=== PATIENT | female | born 1950 | race Caucasian/White ===

== ENCOUNTER → 2018-05-23 09:12 | Outpatient (CLI) | payer MEDICARE, OTHER, SELFPAY ==
[2018-05-23 10:53] LABS: Microalbumin,Random Urine 6.5 mg/L (NO RANGE EST.); Microalbumin:Creatinine Ratio 3.1 mg/g CRE (<30 mg/g CRE)
[2018-05-23 10:54] LABS: ALB/GLOB Ratio 0.9 RATIO (0.9-2.4); AST(SGOT) 20 U/L (15-37); Alanine Aminotransfer ALT/SGPT 23 U/L (13-56); Albumin, Serum 3.4 g/dL (3.2-5.0); Alkaline Phosphatase 122 U/L (45-117); Anion Gap 9 (5-15); BUN 12 mg/dL (7-18); BUN/Creat Ratio 14.7 RATIO (10-20); Calcium,Total 8.4 mg/dL (8.5-10.1); Chloride 104 mmol/L (98-107); Cholesterol 207 mg/dL (200); Creatinine, Serum 0.82 mg/dL (0.55-1.02); EST Glomerular Filtration Rate 74 mL/min (>60); Est Glom Filt Rate - Afr Amer 90 mL/min (>60); Globulin 3.6 g/dL (2.2-4.2); Glucose 86 mg/dL (74-106); High Density Lipoprotein 63 mg/dL; Potassium 4.1 mmol/L (3.5-5.1); Sodium Level 140 mmol/L (136-145); Triglycerides 87 mg/dL; Uric Acid 5.1 mg/dL (2.6-6.0); Very Low Density Lipoprotein 17 mg/dL (5-40)
== END ==
PROVIDERS: Family Provider Family Medicine; PCP Family Medicine; Referring Provider Family Medicine; Visit Provider Family Medicine
DX: I10 Essential (primary) hypertension (principal); E78.00 Pure hypercholesterolemia, unspecified
CPT/HCPCS: 36415; 80053; 80061; 82043; 82570; 84443; 84550

== ENCOUNTER → 2018-11-26 | Outpatient (CLI) | payer MEDICARE, OTHER, SELFPAY ==
[2018-11-26 13:10] LABS: Vitamin D,25 Hydroxy 22.8 ng/mL (29.95-100.01)
[2018-11-26 13:14] LABS: ALB/GLOB Ratio 0.9 RATIO (0.9-2.4); AST(SGOT) 19 U/L (15-37); Alanine Aminotransfer ALT/SGPT 27 U/L (13-56); Albumin, Serum 3.4 g/dL (3.2-5.0); Alkaline Phosphatase 125 U/L (45-117); Anion Gap 8 (5-15); BUN 11 mg/dL (7-18); BUN/Creat Ratio 15.8 RATIO (10-20); Calcium,Total 8.7 mg/dL (8.5-10.1); Chloride 105 mmol/L (98-107); Cholesterol 219 mg/dL (200); EST Glomerular Filtration Rate 89 mL/min (>60); Est Glom Filt Rate - Afr Amer 108 mL/min (>60); Globulin 3.6 g/dL (2.2-4.2); Glucose 79 mg/dL (74-106); High Density Lipoprotein 64 mg/dL; Potassium 4.4 mmol/L (3.5-5.1); Sodium Level 142 mmol/L (136-145); Triglycerides 103 mg/dL; Very Low Density Lipoprotein 21 mg/dL (5-40)
== END | disposition home or self-care (01) ==
LOC: MFPLAB 09:48
PROVIDERS: Family Provider Family Medicine; PCP Family Medicine; Referring Provider Family Medicine; Visit Provider Family Medicine
DX: I10 Essential (primary) hypertension (principal); R74.8 Abnormal levels of other serum enzymes; E78.00 Pure hypercholesterolemia, unspecified
CPT/HCPCS: 36415; 80053; 80061; 82306; 83970; 84443

== ENCOUNTER → 2019-05-21 09:03 | Outpatient (CLI) | payer MEDICARE, OTHER, SELFPAY ==
[2019-04-13 13:04] VITALS: BMI 28.4
[2019-05-21 10:37] LABS: ALB/GLOB Ratio 0.9 RATIO (0.9-2.4); AST(SGOT) 20 U/L (15-37); Alanine Aminotransfer ALT/SGPT 27 U/L (13-56); Albumin, Serum 3.4 g/dL (3.2-5.0); Alkaline Phosphatase 115 U/L (45-117); Anion Gap 5 (5-15); BUN 11 mg/dL (7-18); BUN/Creat Ratio 13.5 RATIO (10-20); Calcium,Total 8.7 mg/dL (8.5-10.1); Chloride 107 mmol/L (98-107); Cholesterol 227 mg/dL (200); Creatinine, Serum 0.81 mg/dL (0.55-1.02); EST Glomerular Filtration Rate 75 mL/min (>60); Est Glom Filt Rate - Afr Amer 90 mL/min (>60); Globulin 3.6 g/dL (2.2-4.2); Glucose 89 mg/dL (74-106); High Density Lipoprotein 65 mg/dL; Potassium 4.1 mmol/L (3.5-5.1); Sodium Level 141 mmol/L (136-145); Triglycerides 102 mg/dL; Very Low Density Lipoprotein 20 mg/dL (5-40)
== END ==
PROVIDERS: Family Provider Family Medicine; PCP Family Medicine; Referring Provider Family Medicine; Visit Provider Family Medicine
DX: E78.00 Pure hypercholesterolemia, unspecified (principal); I10 Essential (primary) hypertension
CPT/HCPCS: 36415; 80053; 80061

== ENCOUNTER → 2019-08-24 | Outpatient (CLI) | payer MEDICARE, OTHER, SELFPAY ==
[2019-04-13 13:04] VITALS: BMI 28.4
--- NOTE | 2019-08-24 10:47 | RAD_ITS ---
STUDY: X-RAY - RIGHT FOOT CLINICAL: Female, 69 years old. right foot pain, no injury, pain on top of foot and lateral TECHNIQUE: 3 view(s) of the foot. COMPARISON: 02/23/2017 FINDINGS: Calcaneus spurs. Hindfoot osteoarthritis. Normal metatarsi. There is degenerative arthrosis of the metatarsophalangeal joint of the hallux . Normal tibial and fibular sesamoid bones. Normal interphalangeal joint of the great toe. Normal phalanges of the great toe. Normal second through fifth metatarsophalangeal joints. Normal interphalangeal joints and phalanges of the lesser toes. The soft tissue structures are unremarkable. RAD/Foot min 3 Views IMPRESSION: Degenerative changes as described. Electronically Signed: Carlos Stanley MD at 14:21 EDT Tel , Service support ,
--- NOTE | 2019-08-24 10:47 | RAD_ITS ---
STUDY: X-RAY - RIGHT ANKLE REASON FOR EXAM: Female, 69 years old. right ankle pain, no injury TECHNIQUE: 3 view(s) of the ankle. COMPARISON: None. FINDINGS: Normal visualized distal tibia and fibula. Normal medial and lateral malleoli. Normal tibiotalar articulation and ankle mortise. Calcaneus spurs. Posterior subtalar osteoarthritis. The soft tissue structures are unremarkable. RAD/Ankle min 3 Views IMPRESSION: Calcaneus spurs. Posterior subtalar osteoarthritis. No other osseous abnormality. Electronically Signed: Carlos Stanley MD at 14:16 EDT Tel , Service support ,
== END | disposition home or self-care (01) ==
LOC: MTRAD 10:44
PROVIDERS: PCP Family Medicine; Referring Provider Nurse Practitioner Family; Visit Provider Nurse Practitioner Family
DX: M25.571 Pain in right ankle and joints of right foot (principal); M79.671 Pain in right foot
CPT/HCPCS: 73610; 73630

== ENCOUNTER → 2020-01-20 11:10 | Outpatient (CLI) | payer MEDICARE, OTHER, SELFPAY ==
[2019-04-13 13:04] VITALS: BMI 28.4
[2020-01-20 12:16] LABS: Vitamin D,25 Hydroxy 50.7 ng/mL
[2020-01-20 12:26] LABS: ALB/GLOB Ratio 0.8 RATIO (0.9-2.4); AST(SGOT) 16 U/L (15-37); Alanine Aminotransfer ALT/SGPT 23 U/L (13-56); Albumin, Serum 3.4 g/dL (3.2-5.0); Alkaline Phosphatase 118 U/L (45-117); Anion Gap 2 (5-15); BUN 10 mg/dL (7-18); BUN/Creat Ratio 12.5 RATIO (10-20); Calcium,Total 8.8 mg/dL (8.5-10.1); Chloride 108 mmol/L (98-107); Cholesterol 213 mg/dL (200); EST Glomerular Filtration Rate 76 mL/min (>60); Est Glom Filt Rate - Afr Amer 92 mL/min (>60); Globulin 4.1 g/dL (2.2-4.2); Glucose 79 mg/dL (74-106); High Density Lipoprotein 59 mg/dL; Potassium 4.1 mmol/L (3.5-5.1); Protein, Total 7.5 g/dL (6.4-8.2); Sodium Level 141 mmol/L (136-145); Thyroid Stim Hormone (TSH) 2.25 uIU/mL (0.358-3.74); Triglycerides 180 mg/dL; Very Low Density Lipoprotein 36 mg/dL (5-40)
== END ==
PROVIDERS: PCP Family Medicine; Referring Provider Family Medicine; Visit Provider Family Medicine
DX: I10 Essential (primary) hypertension (principal); E55.9 Vitamin D deficiency, unspecified
CPT/HCPCS: 36415; 80053; 80061; 82306; 84443

== ENCOUNTER → 2020-04-18 12:25 | Outpatient (CLI) | payer MEDICARE, OTHER, SELFPAY ==
[2020-04-11 13:38] VITALS: BMI 29.3
--- NOTE | 2020-04-18 12:45 | RAD_ITS ---
STUDY: X-RAY - LUMBOSACRAL SPINE REASON FOR EXAM: Female, 70 years old. lower extremity pain, bilateral leg pains TECHNIQUE: 7 view(s) of the lumbosacral spine were obtained. COMPARISON: None FINDINGS: Normal lumbar lordosis. There is no substantial scoliosis. There is normal alignment of the vertebrae. There is diffuse demineralization with multi-level endplate spondylosis. There is multi-level degenerative disc disease with multi-level disc space narrowing. The flexion-extension views show no evidence of instability. Normal bilateral sacral ala, sacroiliac joints, and visualized sacrum. Normal visualized soft tissue structures. RAD/L/S Spine w Bend Min 6 Vw IMPRESSION: Degenerative changes of the spine, as detailed above. Electronically Signed: Andre Leslie, at 8:07 EST Tel , Service support ,
[2020-04-18 15:49] LABS: Magnesium 2.2 mg/dL (1.6-2.6)
== END ==
PROVIDERS: PCP Family Medicine; Referring Provider Family Medicine; Visit Provider Family Medicine
DX: M79.606 Pain in leg, unspecified (principal); G47.62 Sleep related leg cramps
CPT/HCPCS: 72114; 83735

== ENCOUNTER → 2020-04-28 13:47 | Outpatient (CLI) | payer MEDICARE, OTHER, SELFPAY ==
[2020-04-11 13:38] VITALS: BMI 29.3
--- NOTE | 2020-04-28 13:49 | CT_ITS ---
STUDY: CT LUMBAR SPINE WITHOUT CONTRAST REASON FOR EXAM: Female, 70 years old. RADICULOPATHY, LEG CRAMP 5 DAYS AGO RADIATION DOSAGE (If Supplied By Facility): CTDIvol = ( 35.08 ) mGy, DLP = ( 1238.72 ) mGycm TECHNIQUE: The patient was scanned in a multi detector CT scanner. High resolution transaxial imaging was performed. Images were obtained from L1 to S1 vertebral level. Sagittal and coronal images were reconstructed. Individualized dose optimization techniques were used for this CT. COMPARISON: None FINDINGS: Normal lumbar lordosis. There is no substantial scoliosis. Normal vertebrae of the lumbar spine. L1-2: Normal endplates. Normal disc height and morphology. Normal bilateral facet joints. Normal central canal and bilateral lateral recesses. Normal bilateral intervertebral neural foramina. L2-3: Facet joint hypertrophy. Mild degree of bilateral neural foraminal stenosis. L3-4: Mild degree of disc space narrowing. Moderate degree of bilateral neural foraminal and central canal stenosis due to hypertrophy of the facet joints and ligamentum flavum. L4-5: Facet joint osteoarthritis and hypertrophy. Mild to moderate degree of bilateral neural foraminal stenosis. L5-S1: Moderate degree of disc space narrowing and disc degeneration. No significant stenosis is seen. Normal visualized paraspinous soft tissue structures. CT/Spine Lumbar without Contrast IMPRESSION: No foraminal and central canal stenosis at the L3-L4 and L4-L5 levels as described. Electronically Signed: Alex Barboza, at 14:59 EST , Service support ,
== END ==
PROVIDERS: PCP Family Medicine; Referring Provider Family Medicine; Visit Provider Family Medicine
DX: M54.10 Radiculopathy, site unspecified (principal)
CPT/HCPCS: 72131

== ENCOUNTER → 2020-12-14 07:04 | Outpatient (CLI) | payer MEDICARE, OTHER, SELFPAY ==
[2020-05-20 10:10] VITALS: BMI 28.3
[2020-12-14 10:47] LABS: Anion Gap 6 (5-15); BUN 9 mg/dL (7-18); BUN/Creat Ratio 10.8 RATIO (10-20); Calcium,Total 8.7 mg/dL (8.5-10.1); Chloride 106 mmol/L (98-107); Cholesterol 237 mg/dL (200); Creatinine, Serum 0.84 mg/dL (0.55-1.02); EST Glomerular Filtration Rate 72 mL/min (>60); Est Glom Filt Rate - Afr Amer 87 mL/min (>60); Glucose 87 mg/dL (74-106); High Density Lipoprotein 62 mg/dL; Sodium Level 142 mmol/L (136-145); Triglycerides 121 mg/dL; Very Low Density Lipoprotein 24 mg/dL (5-40)
[2020-12-14 11:03] LABS: Microalbumin,Random Urine 5.4 mg/L (NO RANGE EST.); Microalbumin:Creatinine Ratio 6.4 mg/g CRE (<30 mg/g CRE)
[2020-12-16 09:10] LABS: V-Zoster Virus Acute IgM < 0.91 index (0.00-0.90)
== END ==
PROVIDERS: PCP Family Medicine; Referring Provider Family Medicine; Visit Provider Family Medicine
DX: I10 Essential (primary) hypertension (principal); Z01.84 Encounter for antibody response examination
CPT/HCPCS: 36415; 80048; 80061; 82043; 82570; 86787

== ENCOUNTER 2021-02-08 14:00 | Outpatient (RCR) | payer MEDICARE, OTHER, SELFPAY ==
[2020-05-20 10:10] VITALS: BMI 28.3
--- NOTE | 2021-02-01 15:17 | HP.PTEVAL ---
Patient's Visit Information HAKAN RM is a 71 year old F referred to Physical Therapy by Dr. Paulie Almendarez MD with a diagnosis of LE cramping. Date of Evaluation: 02/01/21 Physical Therapist: Sheldon Fontaine, PT, ATC - Visit Plan Frequency: 1x/Week Duration: 3 Weeks Plan: Issued pt HEP of HS and gastroc stretches, along with REIL. Re-assess benefit of Rx next session - Subjective Pt reports she has had intermittent LE cramping for 5 years. Pt reports she has to wake up to walk them off 2-3 times a night. Pt also notes she cant sit on an elevated bar stool secondary to her LE cramps. Pt reports she has had blood work performed which has shown all levels are WNL. Pt denies LBP at this time. Pt reports her R LE cramps are worse than her L LE cramps. Pt reports she was ordered an MRI of her LB, but the paper work got lossed in the shuffle and she has never had one performed. Pt reports there is nothing she knows of in particular that increases her cramps. Pt reports the only thing that helps is to walk it off. Pt reports she has been stretching inconsistently, and is not sure if they are helping. 0-8/10 pain range. - Pain LE's Pain Intensity (Out of 10): 0 Pain Intensity Range: 8 - Objective Neuro: R L5 is numb to light touch. all other B LE sensation is WNL to light touch. MMT: L LE is 5/5 throughout. R LE is grossly 4/5 and is only limited with cramping. L/S ROM: WNL all planes. Repeated movements: RFIS 10x3 NE, KURT 10x3 NE. Flexibility: B ankle DF ROM= -5 degrees, B 90/90 tests -25 degrees - Goals Goal 1:: I with HEP in 1-3 visits - Rehabilitation Potential Physical Therapy Diagnosis: Pt has B LE pain and weakness secondary to excessive muscle guarding Rehabilitation Potential: Good - Anticipated Interventions Patient/Client Instruction: Educate patient on: Condition, Plan of Care For the Purpose of:: To improve self management Therapeutic Exercise to Include: Flexibilty training For the Purpose of:: To decrease pain, To increase ROM, To improve muscle performance and motor function Manual Therapy Techniques to Include: Soft tissue mobilization For the Purpose of:: To decrease pain Thank you for the opportunity to evaluate your patient. For Medicare and Medicare HMO plans, please review the plan of care and approve it. It will need to be FAXED BACK to us at [phone] for Medicare purposes. For Medicare only, by signing this I certify the plan of care. Please let me know if there are questions or concerns regarding this plan of care. Physician Signature: Date:
--- NOTE | 2021-04-21 12:26 | HP.PT.NRP ---
HAKAN RM was seen in my office for initial evaluation on 02/01/21. The following Plan of Care was established for this patient: Initial Frequency: 1x/Week Initial Duration: 3 Weeks Patient/Client Instruction: Educate patient on: Condition, Plan of Care For the Purpose of:: To improve self management Therapeutic Exercise to Include: Flexibilty training For the Purpose of:: To decrease pain, To increase ROM, To improve muscle performance and motor function Manual Therapy Techniques to Include: Soft tissue mobilization For the Purpose of:: To decrease pain This patient was last seen in our office . Pertinent comments regarding their Physical therapy will appear below: Pt was treated for 2 PT visits secondary to LE pain through the date of 02/08/21. Pt has not returned through todays date and is discontinued at this time. At this point I will be discontinuing this patient from physical therapy. I would be happy to see this patient again in the future if found appropriate by the physician. Thank you! Sheldon Fontaine, PT, ATC Balance/Gait/Functional tests - Balance/Special Test Scores Lower Extremity Functional Score: 79
== END 2021-02-08 19:00 | disposition home or self-care (01) ==
LOC: PT 14:00
PROVIDERS: PCP Family Medicine; Referring Provider Family Medicine; Visit Provider Family Medicine
DX: G47.62 Sleep related leg cramps (principal)
CPT/HCPCS: 97110; 97140; 97161

== ENCOUNTER 2021-05-28 13:21 | Inpatient (IN) | payer MEDICARE, OTHER, SELFPAY ==
[2021-05-28] VITALS (11 sets, daily range): BP systolic 123–139; BP diastolic 69–113; PULSE 75–130; RESP 18–22; TEMP 36.3–37; O2SAT 93–97; BMI 26.6; BMI 28.3
--- NOTE | 2021-05-28 13:25 | EKG12_ITS ---
Test Reason : CP Blood Pressure : / mmHG Vent. Rate : 100 BPM Atrial Rate : 100 BPM P-R Int : 112 ms QRS Dur : 058 ms QT Int : 328 ms P-R-T Axes : -03 -07 000 degrees QTc Int : 423 ms Normal sinus rhythm Abnormal ECG Confirmed by JOSE RUBIO, BONI ([id number]), senior editor ALEXIA HERNANDEZ ([id number]) on 05/31/2021 11:12:22 AM Referred By: RAYSHAWN Confirmed By:BONI GARCIA MD
--- NOTE | 2021-05-28 13:25 | RAD_ITS ---
STUDY: X-RAY CHEST REASON FOR EXAM: Female, 71 years old. COUGH TECHNIQUE: Frontal portable view of the chest COMPARISON: 28 August 2013 FINDINGS: There is regional right upper lobe opacity with a more ill-defined left mid and upper lung zone opacities. Lungs are mildly emphysematous/hyperinflated. There is no pneumothorax, cardiomegaly or pleural effusions. RAD/Chest 1 View (Portable) IMPRESSION: Right upper lobe, and possibly multifocal pneumonia, either viral/Covid or bacterial. Electronically Signed: Deya Steinberg MD at 15:54 EST Tel , Service support ,
--- NOTE | 2021-05-28 13:32 | NURSING ---
NO OLD EKGS
--- NOTE | 2021-05-28 15:25 | ED.VIS.DYS ---
HPI History of Present Illness Chief Complaint: Cough Informant: patient Onset/Context/Timing Onset: Weeks (Onset of illness 2 weeks ago) Context: sudden Timing: Continuous and Waxes and wanes Quality: Positive for Dyspnea on exertion; Negative for Orthopnea, PND and Wheezing Current Severity: Mild Maximum Severity: Moderate Worsened by: Exertion and Coughing Relieved by: Nothing and Rest (Sometimes are better at rest) Associated Symptoms cough, rhinorrhea, post nasal drip and sore throat; Negative for ear pain, fever, subjective, chills, clear sputum, white sputum, yellow sputum or green sputum Chest Pain: Positive for None Narrative Narrative: Patient is a 71-year-old woman with history of essential hypertension, hyperlipidemia, paroxysmal supraventricular tachycardia who presents with persistent cough and shortness of breath for the past 2 weeks. She was seen in urgent care center and informed she had a negative Covid test. She was placed on azithromycin for acute bronchitis . She is a non-smoker. She has no history of lung problems. She denies history of cardiac problems. She denies history of VTE. She denies leg pain, swelling or discoloration. She denies nausea or vomiting. She does report diarrhea. She is not noted any blood or mucus in the diarrhea. The diarrhea has gotten slightly worse as taking azithromycin. She does report myalgias and arthralgias. She denies headache. Denies photophobia. Denies neck pain or neck stiffness. She denies loss of taste or smell. She denies any recent surgery. PE Risk Factors: Negative for Cancer, OCP + Smoking + > 35, Prior DVT or PE, Recent immobilization, Recent surgery and Recent travel Prior similar symptoms: Yes Recent Illness/Hospitalization: Yes (Acute bronchitis) [facility] Medical History (Updated 05/28/21 @ 19:[address] Robin Wade MD) Essential hypertension Hyperlipidemia Paroxysmal SVT (supraventricular tachycardia) Premature ventricular contraction Home Medications ezetimibe 10 mg tablet 10 mg PO QDAY 02/04/18 [History Last Taken Unknown] ipratropium bromide 17 mcg/actuation HFA aerosol inhaler 2 puff INHALATION Q6H g 02/05/18 [History Last Taken Unknown] cholecalciferol (vitamin D3) 50 mcg (2,000 unit) capsule 50 mcg PO DAILY 04/11/20 [History Last Taken Unknown] loratadine 10 mg tablet 10 mg PO DAILY 04/11/20 [History Last Taken Unknown] lisinopril 5 mg tablet 5 mg PO QDAY #90 tab 12/21/20 [Rx Last Taken Unknown] benzonatate 100 mg capsule 200 mg PO TID PRN #30 cap 05/23/21 [Rx Last Taken Unknown] Allergy/AdvReac Type Severity Reaction Status Date / Time pitavastatin [From Livalo] Allergy Severe Itching Verified 05/28/21 13:22 colestipol AdvReac Severe Constipatio Verified 05/28/21 13:22 n meloxicam AdvReac Severe Hallucinati Verified 05/28/21 13:22 ons amlodipine AdvReac Intermediate Increased Verified 05/28/21 13:22 pulse ibuprofen AdvReac Other Verified 05/28/21 13:22 Penicillins [PCN] AdvReac Hives Verified 05/28/21 13:22 Family History Mother CAD (coronary artery disease) Esophageal cancer Father CAD (coronary artery disease) Atrial fibrillation Lung cancer Surgical History H/O: hysterectomy History of external ear surgery [place] teeth removed Social History household members: spouse housing: house Smoking Status: Never smoker alcohol intake: never what type of physical activity do you participate in: walking frequency: 3-4 times per week do you feel safe at home: Yes ROS ROS ED Constitutional Constitutional ED: Denies chills, fever(s), sweats or weight loss Eyes Eyes: Denies blurry vision, change in vision or diplopia ENT ENT ED: Reports rhinorrhea and sore throat; Denies ear pain Cardiovascular Cardiovascular: Denies chest pain, orthopnea, palpitations, paroxysmal nocturnal dyspnea or racing heartbeat Respiratory/Chest Respiratory/Chest: Reports cough, dyspnea and dyspnea on exertion; Denies orthopnea, paroxysmal nocturnal dyspnea or sputum Gastrointestinal Gastrointestinal: Reports diarrhea; Denies abdominal pain, constipation, melena, nausea or vomiting Genitourinary Genitourinary ED: Reports other Details: Patient endorses decreased urine output ; Denies dysuria, hematuria or urinary frequency Musculoskeletal Musculoskeletal: Reports myalgias; Denies arthralgias, back pain or neck pain Integumentary Denies Abrasions or rash Neurologic Neurologic: Denies headache(s), paresthesias or weakness Endocrine Endocrinology: Denies polydipsia, polyphagia or polyuria EXAM Physical Exam Const Vital Signs: 05/28/21 13:23 05/28/21 15:54 05/28/21 17:58 Temperature 97.4 F L Temperature Source Temporal Pulse Rate 109 H 92 120 H Respiratory Rate 18 18 18 Respiratory Effort Normal Respiratory Depth Normal Respiratory Pattern Normal Blood Pressure 139/97 H Blood Pressure Mean 111 Pulse Ox 93 96 95 Oxygen Delivery Method Room Air Room Air Room Air 05/28/21 18:51 05/28/21 18:55 Temperature 98 F Temperature Source Tympanic Pulse Rate 130 H 125 H Respiratory Rate 20 H 22 H Respiratory Effort Respiratory Depth Respiratory Pattern Blood Pressure 137/113 H 137/113 H Blood Pressure Mean 121 121 Pulse Ox 96 94 Oxygen Delivery Method Room Air Positive well nourished and well developed General Appearance ED: well developed and other Patient is ill but not toxic. She has a persistent hacking nonproductive cough. ; Negative for NAD or pallor HEENT Reports dry mucous membranes HEENT Narrative: Nares patent clear drainage. Uvula midline. No erythema or exudate. atraumatic; Negative for tenderness Mouth ED: Yes dry mucous membranes Mouth: dry mucous membranes Eyes PERRL and EOMs intact bilaterally General Eye ED: Negative for pale conjunctiva or scleral icterus Neck no lymphadenopathy, supple, no meningeal signs and no JVD Resp normal respiratory effort and No clear to auscultation bilaterally Auscultation: rales bilateral lower Cardio regular rhythm, S1 normal heart sound, S2 normal heart sound and no murmurs GI non-tender, non-distended and no masses Auscultation: normoactive bowel sounds Palpation: soft Back/Spine no CVA tenderness and normal to inspection General Back: Negative for CVA tenderness Extremity normal to inspection Extremity Narrative: There is no asymmetry, swelling, discoloration, leg vein distention, palpable cords or tenderness along the distribution of the deep venous system. General Extremety ED: Negative for edema or tenderness General Extremity: Negative for edema Neuro oriented x3, CN's II-XII intact bilaterally and no sensory deficits noted Julianna Coma Scale: document GCS findings Spontaneous Obeys Commands Oriented 15 Sensorium / Orientation: alert Motor Exam: strength 5/5 throughout Psych mental status grossly normal Skin no wounds and No skin turgor normal General Skin Exam: Negative for jaundice or pallor Lesions: no lesions Rashes: no rashes MDM MDM MDM Narrative Medical decision making narrative: Clinically patient has Covid pneumonia. Chest x-ray was obtained. Since she is having diarrhea clinically dehydrated basic metabolic panel was obtained to assess renal function, CO2 anion gap and specifically potassium, hypokalemia. With new onset A. fib unknown onset will anticoagulate with Eliquis and treat with Cardizem bolus and drip. Once the boarding nurse arrives will page hospitalist for admission/boarded patient in the emergency department. A troponin was ordered and is pending. Lab Data Attestation: I reviewed the patient's lab results. Labs: Laboratory Results - last 24 hr 05/28/21 05/28/21 05/28/21 15:55 15:55 18:00 WBC 7.6 RBC 5.28 Hgb 15.4 H Hct 45.8 MCV 86.7 MCH 29.2 MCHC 33.6 RDW Std Deviation 40.3 RDW Coeff of Gregoria 12.8 Plt Count 216 MPV 10.8 Immature Gran % (Auto) 0.400 Neut % (Auto) 77.3 H Lymph % (Auto) 15.5 L [place] % (Auto) 6.7 Eos % (Auto) 0.0 Baso % (Auto) 0.1 Absolute Neuts (auto) 5.8 Absolute Lymphs (auto) 1.17 Nucleated RBC % 0 Sodium 136 Potassium 3.6 Chloride 99 Carbon Dioxide 29.0 Anion Gap 8 BUN 11 Creatinine 0.78 Estim Creat Clear Calc 47.78 Est GFR (MDRD) Af Amer 94 Est GFR (MDRD) Non-Af 77 BUN/Creatinine Ratio 14.0 Glucose 108 H Calcium 8.7 Troponin I High Sens 6 Radiography Chest X-Ray - ED: 1 View (Single view chest x-ray was interpreted by me at 1500. Cardiac silhouette size normal. Osseous structures unremarkable. Perihilar region is unremarkable. There appears to be slight haziness in the periphery suggestive of Covid pneumonia.) Diagnostic Testing: Clinical Impression(s) from Imaging Studies Chest X-Ray 05/28/21 13:25 IMPRESSION: Right upper lobe, and possibly multifocal pneumonia, either viral/Covid or bacterial. Electronically Signed: Deya Steinberg MD at 15:54 EST Tel , Service support , EKG Initial EKG: Attestation: I personally reviewed and interpreted this EKG as follows: Interpretation: Atrial Fibrillation (Atrial fibrillation with a ventricular rate of 139. QRS duration 70 ms. QT duration 298 ms. [place] is normal. There is no ossific changes most likely rate dependent. Patient was unaware that her heart rate was going rapidly. Onset is unknown therefore will not cardiovert. She was treated with C) Critical Care Time Critical Care Time: Yes Critical care time (excluding procedures): 30-74 minutes (42 minutes), Including time spent: (History, physical, traditional laboratory results, management of patient until boarding nurse and hospitalist available for admission orders), Discussing w/Patient &/or Family/Leadership Development Instructor, Discussing w/Consultants and Arranging Admission or Transfer Discharge Plan Triage Chief Complaint: Cough ED Provider: Robin Wade Dx/Rx/DC Orders Clinical Impression: Pneumonia due to 2019-nCoV, Atrial fibrillation, new onset Prescriptions: No Action ipratropium bromide [Atrovent HFA] 17 mcg/actuation HFA aerosol inhaler 2 puff INHALATION Q6H RF: 0 cholecalciferol (vitamin D3) 50 mcg (2,000 unit) capsule 50 mcg PO DAILY RF: 0 loratadine 10 mg tablet 10 mg PO DAILY RF: 0 benzonatate 100 mg capsule 200 mg PO TID PRN (Reason: cough) Qty: 30 RF: 0 ezetimibe [Zetia] 10 mg tablet 10 mg PO QDAY RF: 0 lisinopril 5 mg tablet 5 mg PO QDAY Qty: 90 RF: 3 Primary Care Provider: Paulie Almendarez Referrals: Paulie Almendarez MD [Primary Care Provider] - Disposition Disposition: Acute Care [facility]
[2021-05-28 16:01] LABS: Absolute Lymphocyte Count 1.17 X10^3/uL (0.83-4.51); Absolute Neutrophil Count 5.8 X10^3/uL (2.0-7.7); Basophil# 0.01 X10^3/uL; Basophil% 0.1 % (0-1); Hematocrit 45.8 % (37-47); Hemoglobin 15.4 g/dL (12.0-15.0); Lymphocyte # 1.17 X10^3/ul (0.83-4.51); Lymphocyte % 15.5 % (19-41); Mean Corp Hgb Conc 33.6 g/dL (32-36); Mean Corpuscular Hgb 29.2 pg (27.0-32.0); Mean Corpuscular Volume 86.7 fL (81-99); Mean Platelet Vol. 10.8 fl (6.2-12.0); Monocyte# 0.51 X10^3/uL; Monocyte% 6.7 % (0-10); NRBC Flagged by Analyzer 0 % (0-5); Neutrophil # 5.84 X10^3/uL (2.7-7.7); Neutrophil % 77.3 % (47-70); Platelet Count 216 K/mm3 (150-450); RBC Distribution Width CV 12.8 % (11.6-14.6); RBC Distribution Width SD 40.3 fl (35.1-43.9); Red Blood Count 5.28 M/mm3 (4.2-5.4); White Blood Count 7.6 K/mm3 (4.4-11.0)
--- NOTE | 2021-05-28 16:15 | ED.RN ---
medication not given, non-formulary, dr. lacy aware. states give the hydrocone/acetaminophen elix.
[2021-05-28 16:17] LABS: Anion Gap 8 (5-15); BUN 11 mg/dL (7-18); Calcium,Total 8.7 mg/dL (8.5-10.1); Chloride 99 mmol/L (98-107); Creatinine, Serum 0.78 mg/dL (0.55-1.02); EST Glomerular Filtration Rate 77 mL/min (>60); Est Glom Filt Rate - Afr Amer 94 mL/min (>60); Estimated Creatinine Clearance 47.78 ml/min; Glucose 108 mg/dL (74-106); Potassium 3.6 mmol/L (3.5-5.1); Sodium Level 136 mmol/L (136-145)
[2021-05-28] MEDS: HYDROCODONE/APAP 7.5-325/15ML 15 ML UDC PO (16:46)
[2021-05-28] MEDS: dilTIAZem 25 MG/5 ML Vial 20 MG IV BOLUS (18:47)
[2021-05-28 19:14] LABS: Troponin-I HS 6 pg/mL (3.0-54.0)
--- NOTE | 2021-05-28 19:39 | HP.PCM.HOS_ITS ---
HPI - General General Date of Admission: 05/28/21 HPI Narrative HAKAN RM, is a 71 F with a significant history of hypertension; paroxysmal SVT; PVCs and hyperlipidemia who presents to the emergency department with 1/2-week history of dry cough. Patient has been to the urgent care 2 times because of the symptoms. The first time she was diagnosed with a cold. Covid test was negative. She went a second time she was diagnosed with bronchitis and started on azithromycin. She developed diarrhea. She reported that anytime she eats her bowels moved. Her stool is watery. She reports left lower quadrant pain. She reports weakness, fatigue, chest tightness, back tightness. She denies shortness of breath, fever, or chills. She reports anorexia. On presentation at the emergent department she tested Covid positive. She is unvaccinated Initially she was found to be in A. fib at the emergency department. Emergent department doctor reports heart rate going to the 160s. She was given Cardizem bolus and started on a Cardizem drip. With Cardizem drip she converted to normal sinus rhythm. [facility] Medical History (Updated 05/28/21 @ 19:[address] Robin Wade MD) Essential hypertension Hyperlipidemia Paroxysmal SVT (supraventricular tachycardia) Premature ventricular contraction Home Medications ezetimibe 10 mg tablet 10 mg PO QDAY 02/04/18 [History Last Taken Unknown] ipratropium bromide 17 mcg/actuation HFA aerosol inhaler 2 puff INHALATION Q6H g 02/05/18 [History Last Taken Unknown] cholecalciferol (vitamin D3) 50 mcg (2,000 unit) capsule 50 mcg PO DAILY 03/18 12/04 [History Last Taken Unknown] loratadine 10 mg tablet 10 mg PO DAILY 04/11/20 [History Last Taken Unknown] lisinopril 5 mg tablet 5 mg PO QDAY #90 tab 12/21/20 [Rx Last Taken Unknown] benzonatate 100 mg capsule 200 mg PO TID PRN #30 cap 05/23/21 [Rx Last Taken Unknown] Allergy/AdvReac Type Severity Reaction Status Date / Time pitavastatin [From Livalo] Allergy Severe Itching Verified 05/28/21 13:22 colestipol AdvReac Severe Constipatio Verified 05/28/21 13:22 n meloxicam AdvReac Severe Hallucinati Verified 05/28/21 13:22 ons amlodipine AdvReac Intermediate Increased Verified 05/28/21 13:22 pulse Beef Containing Products AdvReac Upset Verified 05/28/21 22:18 Stomach ibuprofen AdvReac Other Verified 05/28/21 13:22 Penicillins [PCN] AdvReac Hives Verified 05/28/21 13:22 Family History Mother CAD (coronary artery disease) Esophageal cancer Father CAD (coronary artery disease) Atrial fibrillation Lung cancer Surgical History H/O: hysterectomy History of external ear surgery [place] teeth removed Social History household members: spouse housing: house Smoking Status: Never smoker alcohol intake: never what type of physical activity do you participate in: walking frequency: 3-4 times per week do you feel safe at home: Yes ROS ROS Narrative Constitutional: Reports fatigue and anorexia. Denies fever, chills, and change in weight Eyes: Denies blurry vision, change in eye color, change in vision, discharge from eye(s), double vision, erythema, eye pain, loss of vision or other HEENT: Denies abnormal hearing, dysphagia, ear pain, epistaxis, headache(s), hearing loss, nasal congestion, nasal discharge, post nasal drip, sinus pressure , sore throat or other Cardiovascular: She reports chest tightness. She denies palpitations. Respiratory/Chest: She reports dry cough. She denies shortness of breath. Gastrointestinal: She reports left lower quadrant pain. She reports loose stools. She denies nausea or vomiting. Genitourinary: Denies burning urination, difficulty urinating, dysuria, hematuria, nocturia, urinary frequency, urinary hesitancy, urinary incontinence, urinary urgency or other Musculoskeletal: Denies arthralgias, back pain, joint pain, joint stiffness, joint swelling, myalgias, neck pain or other Neurologic: Denies abnormal gait, abnormal speech, confusion, disequilibrium, dizziness, focal weakness, headache(s), numbness, paresthesias, seizure-like activity, seizures, syncope, tingling, tremor(s) or other Psychiatric: Denies anxiety, depression, homicidal ideation, suicidal ideation or other Endocrinology: Denies change in body appearance, cold intolerance, excessive sweating, heat intolerance, polydipsia, polyuria or other Hematologic/Lymphatic: Denies anemia, easy bleeding, easy bruising, ly mphadenopathy or other Integumentary: Denies rashes Allergic/Immunologic: Denies rhinitis, hives, eczema, asthma or other Vital Signs Vital Signs Vital Signs: 05/28/21 13:23 05/28/21 15:54 05/28/21 17:58 Temperature 97.4 F L Temperature Source Temporal Pulse Rate 109 H 92 120 H Respiratory Rate 18 18 18 Respiratory Effort Normal Respiratory Depth Normal Respiratory Pattern Normal Blood Pressure 139/97 H Blood Pressure Mean 111 Pulse Ox 93 96 95 Oxygen Delivery Method Room Air Room Air Room Air 05/28/21 18:51 05/28/21 18:55 Temperature 98 F Temperature Source Tympanic Pulse Rate 130 H 125 H Respiratory Rate 20 H 22 H Respiratory Effort Respiratory Depth Respiratory Pattern Blood Pressure 137/113 H 137/113 H Blood Pressure Mean 121 121 Pulse Ox 96 94 Oxygen Delivery Method Room Air Weight Weight: 72.603 kg Body Mass Index (BMI) 26.6 Physical Exam Narrative Physical exam: General: Well-nourished, well-developed. Head: Normocephalic, atraumatic, no tenderness Eyes: PERRLA, EOMI ENT, no trauma, moist mucous membranes, no rhinorrhea Neck: Nontender, full range of motion, no spinal tenderness, deformities, step- off CVS: Regular rate and rhythm. S1-S2 present. No murmur, gallop or rub. Respiratory : Rales. Chest wall nontender, no wheezing Abdomen: Soft, nontender, nondistended, normal bowel sounds, no masses : Deferred Back: Nontender, no CVA tenderness, no midline spinal tenderness, deformities, step-offs Extremities: Nontender full range of motion, no trauma Skin: Normal color, no trauma, abrasions Neuro: Alert, oriented, cranial nerves II through XII grossly intact. Psychiatry: Normal mood. Normal affect. Not depressed. Not anxious. Results Lab / Micro Data Result Diagrams: 05/28/21 15:55 05/28/21 15:55 Labs: Laboratory Results - last 24 hr 05/28/21 15:55: WBC 7.6, RBC 5.28, Hgb 15.4 H, Hct 45.8, MCV 86.7, MCH 29.2, MCHC 33.6, RDW Std Deviation 40.3, RDW Coeff of Gregoria 12.8, Plt Count 216, MPV 10.8, Immature Gran % (Auto) 0.400, Neut % (Auto) 77.3 H, Lymph % (Auto) 15.5 L, Placer % (Auto) 6.7, Eos % (Auto) 0.0, Baso % (Auto) 0.1, Absolute Neuts (auto) 5.8, Absolute Lymphs (auto) 1.17, Nucleated RBC % 0 05/28/21 15:55: Sodium 136, Potassium 3.6, Chloride 99, Carbon Dioxide 29.0, Anion Gap 8, BUN 11, Creatinine 0.78, Estim Creat Clear Calc 47.78, Est GFR (MDRD) Af Amer 94, Est GFR (MDRD) Non-Af 77, BUN/Creatinine Ratio 14.0, Glucose 108 H, Calcium 8.7 05/28/21 18:00: Troponin I High Sens 6 Micro: Microbiology 05/28/21 13:28 Nasal Secretion SARS-CoV-2 Antigen (Rapid) - Final SARS-CoV-2 (COVID 19) Radiology Impression Chest X-Ray 05/28/21 13:25 IMPRESSION: Right upper lobe, and possibly multifocal pneumonia, either viral/Covid or bacterial. Electronically Signed: Deya Steinberg MD at 15:54 EST Tel , Service support , Assessment & Plan Assessment/Plan (1) Atrial fibrillation, new onset: (2) Pneumonia due to 2019-nCoV: PLAN: Atrial fibrillation, newly diagnosed Denies previous history of A. fib. Patient was in atrial fibrillation with ventricular response at the emergency department. With Cardizem bolus and drip patient converted to normal sinus rhythm. Will initiate p.o. Cardizem and stop Cardizem drip 1 hour afterwards. Potassium is 3.6. Replace potassium. Magnesium was checked. Magnesium level returned as 2.0. Check TSH. Consider echocardiogram when patient is normal and COVID-19 precautions. Covid precautions ordered. Started on Eliquis at the emergency department and continued. Trend BMP. COVID-19 infection. Chest x-ray was independently pertinent radiology interpretation above. Patient is not hypoxic and would not be a candidate for Decadron or remdesivir. Tessalon pills continued. Breathing treatment continued. DVT prophylaxis: Started on Eliquis for A. fib. Charges/Coding Visit Charges Inpatient E&M: 29665 Init Hosp L2
--- NOTE | 2021-05-28 20:03 | EKG12_ITS ---
Test Reason : REPEAT Blood Pressure : / mmHG Vent. Rate : 139 BPM Atrial Rate : 182 BPM P-R Int : 000 ms QRS Dur : 070 ms QT Int : 298 ms P-R-T Axes : 000 003 204 degrees QTc Int : 453 ms Atrial fibrillation Nonspecific ST and T wave abnormality Abnormal ECG Confirmed by JOSE RUBIO, BONI ([id number]), international editorial producer ALEXIA HERNANDEZ ([id number]) on 05/31/2021 11:20:13 AM Referred By: Confirmed By:BONI GARCIA MD
[2021-05-28] MEDS: dilTIAZem 30 MG Tablet PO (21:29)
[2021-05-28] MEDS: APIXABAN 5 MG TABLET PO (21:29)
--- NOTE | 2021-05-28 22:56 | EKG12_ITS ---
Test Reason : REPEAT Blood Pressure : / mmHG Vent. Rate : 083 BPM Atrial Rate : 083 BPM P-R Int : 124 ms QRS Dur : 082 ms QT Int : 380 ms P-R-T Axes : 045 005 036 degrees QTc Int : 446 ms Normal sinus rhythm Normal ECG Confirmed by JOSE RUBIO, BONI ([id number]), tape editor ALEXIA HERNANDEZ ([id number]) on 05/31/2021 11:21:19 AM Referred By: Confirmed By:BONI GARCIA MD
--- NOTE | 2021-05-28 23:14 | PCS.PANDOC ---
PANDEMIC DOCUMENTATION INITIATED: Date: 01/30/2021 Time: 190
[2021-05-28] MEDS: guaiFENesin 1,200 MG Tablet 1200 MG PO (23:34)
[2021-05-29] VITALS (9 sets, daily range): BP systolic 112–135; BP diastolic 59–82; PULSE 69–91; RESP 17–18; TEMP 36.6–37.2; O2SAT 92–98
[2021-05-29 00:57] LABS: BNP,B-Type NATRIURETIC PEPTIDE 37.8 pg/mL (0-100)
[2021-05-29] MEDS: dilTIAZem 30 MG Tablet PO ×4 (01:04→17:13)
[2021-05-29 06:29] LABS: Absolute Lymphocyte Count 1.64 X10^3/uL (0.83-4.51); Absolute Neutrophil Count 3.9 X10^3/uL (2.0-7.7); Basophil# 0.01 X10^3/uL; Basophil% 0.2 % (0-1); Eosinophil# 0.02 X10^3/uL; Eosinophils% 0.3 % (0-5); Hematocrit 38.2 % (37-47); Hemoglobin 12.7 g/dL (12.0-15.0); Lymphocyte # 1.64 X10^3/ul (0.83-4.51); Lymphocyte % 26.9 % (19-41); Mean Corp Hgb Conc 33.2 g/dL (32-36); Mean Corpuscular Hgb 29.2 pg (27.0-32.0); Mean Corpuscular Volume 87.8 fL (81-99); Mean Platelet Vol. 10.9 fl (6.2-12.0); Monocyte# 0.48 X10^3/uL; Monocyte% 7.9 % (0-10); NRBC Flagged by Analyzer 0 % (0-5); Neutrophil # 3.93 X10^3/uL (2.7-7.7); Neutrophil % 64.4 % (47-70); Platelet Count 211 K/mm3 (150-450); RBC Distribution Width CV 12.8 % (11.6-14.6); RBC Distribution Width SD 41.9 fl (35.1-43.9); Red Blood Count 4.35 M/mm3 (4.2-5.4); White Blood Count 6.1 K/mm3 (4.4-11.0)
[2021-05-29] MEDS: Potassium Chloride Oral Tablet 20 MEQ 40 MEQ PO (06:57)
[2021-05-29 07:03] LABS: Anion Gap 7 (5-15); BUN 9 mg/dL (7-18); BUN/Creat Ratio 17.7 RATIO (10-20); Calcium,Total 7.6 mg/dL (8.5-10.1); Chloride 106 mmol/L (98-107); Creatinine, Serum 0.51 mg/dL (0.55-1.02); EST Glomerular Filtration Rate 127 mL/min (>60); Est Glom Filt Rate - Afr Amer 154 mL/min (>60); Estimated Creatinine Clearance 47.78 ml/min; Glucose 94 mg/dL (74-106); Potassium 3.6 mmol/L (3.5-5.1); Sodium Level 139 mmol/L (136-145); Thyroid Stim Hormone (TSH) 0.98 uIU/mL (0.358-3.74)
[2021-05-29] MEDS: APIXABAN 5 MG TABLET PO ×2 (08:33→22:32)
[2021-05-29] MEDS: Acetaminophen 325 MG Tablet 650 MG PO (08:34)
[2021-05-29] MEDS: guaiFENesin 1,200 MG Tablet 1200 MG PO ×2 (08:34→22:32)
[2021-05-29] MEDS: Ezetimibe 10 MG Tablet PO (08:35)
[2021-05-29] MEDS: Loratadine 10 MG Tablet PO (08:36)
[2021-05-29] MEDS: Lisinopril 5 MG Tablet PO (08:36)
[2021-05-29] MEDS: Cholecalciferol (VIT D3) 25 MCG TABLET (1,000 UNITS) 50 MCG PO (08:36)
--- NOTE | 2021-05-29 10:57 | CASEMGMT ---
ALFONSO WILKERSON assessment: Initial transition planning/care coordination assessment. ALFONSO WILKERSON introduced self and role at [facility], pt voices understanding and consents to assessment. Pt is on room air in no distress. Pt is A/Ox4 and answers all questions appropriately. Pt is not vaccinated and was tested here 05/28/21. Pt states does not have symptoms and states no concerns with getting resources. Care providers, pharmacy, and demographics verified. Presentation: Pt c/o cough for 2 weeks, no improvement with zpak Admitting dx: New onset Afib, COVID PCP: [facility] Specialists: [facility], cardio Preferred [facility]acy[facility]pt to be sent home on Induction Manager and ALFONSO WILKERSON will follow for co-pay. Pt provided 30day free trial card. Insurance: MCR A/B, Prescription Benefit: Living Will/HPOA: Pt has LW/HPOA and is aware that they are not on file at [facility]. Pt states her sister in law is her HPOA. LNOK: James Purdy, Living Arrangements: Pt lives with in 2 story home and states no concerns at home. Transportation: Pt states drives self and states no transportation concerns. DME/HHC: Pt states no current DME or need for any further DME. Pt states no preference for DME company, if qualifies for home oxygen. Pt states no hx of HHC or SNF. Pt states no concerns with going home at time of discharge. Pt is retired. Pt states does not smoke cigarettes or drink ETOH. Pt voices no further concerns/needs. CM to follow for any further discharge planning/needs. Advised pt to ask for CM if any further questions/concerns/needs arise, voices understanding. Pt Goal: Home Plan: [place] ALFONSO WILKERSON
--- NOTE | 2021-05-29 14:26 | PN.HOSP_ITS ---
Subjective Subjective Patient is a 71-year-old lady who presented with persistent dry cough. In the emergency department patient was found to be in A. fib with RVR. Her Covid test came back positive Objective Data Objective Data Vital Signs: Vital Signs Temp Pulse Resp BP Pulse Ox 98.8 F 91 18 118/82 H 92 05/29/21 08:30 05/29/21 11:00 05/29/21 08:30 05/29/21 08:30 05/29/21 08:30 Oxygen Delivery Method Room Air Weight: 77.1 kg Body Mass Index (BMI) 28.3 Intake & Output: Intake and Output for Last 24 Hours 05/27/21 05/28/21 05/29/21 23:59 23:59 23:59 Intake Total 658.00 / 658.00 480 / 480 Balance 658.00 / 658.00 480 / 480 Lab / Micro Data Result Diagrams: 05/29/21 05:56 05/29/21 05:56 Labs: Laboratory Results - last 24 hr 05/28/21 15:55: WBC 7.6, RBC 5.28, Hgb 15.4 H, Hct 45.8, MCV 86.7, MCH 29.2, MCHC 33.6, RDW Std Deviation 40.3, RDW Coeff of Gregoria 12.8, Plt Count 216, MPV 10.8, Immature Gran % (Auto) 0.400, Neut % (Auto) 77.3 H, Lymph % (Auto) 15.5 L, [place] % (Auto) 6.7, Eos % (Auto) 0.0, Baso % (Auto) 0.1, Absolute Neuts (auto) 5.8, Absolute Lymphs (auto) 1.17, Nucleated RBC % 0 05/28/21 15:55: Sodium 136, Potassium 3.6, Chloride 99, Carbon Dioxide 29.0, Anion Gap 8, BUN 11, Creatinine 0.78, Estim Creat Clear Calc 47.78, Est GFR (MDRD) Af Amer 94, Est GFR (MDRD) Non-Af 77, BUN/Creatinine Ratio 14.0, Glucose 108 H, Calcium 8.7 05/28/21 17:59: B-Natriuretic Peptide 37.8 05/28/21 18:00: Troponin I High Sens 6 05/28/21 : Magnesium 2.0 05/29/21 05:56: WBC 6.1, RBC 4.35, Hgb 12.7, Hct 38.2, MCV 87.8, MCH 29.2, MCHC 33.2, RDW Std Deviation 41.9, RDW Coeff of Gregoria 12.8, Plt Count 211, MPV 10.9, Immature Gran % (Auto) 0.300, Neut % (Auto) 64.4, Lymph % (Auto) 26.9, [place]lee % (Auto) 7.9, Eos % (Auto) 0.3, Baso % (Auto) 0.2, Absolute Neuts (auto) 3.9, Absolute Lymphs (auto) 1.64, Nucleated RBC % 0 05/29/21 05:56: Sodium 139, Potassium 3.6, Chloride 106, Carbon Dioxide 26.0, Anion Gap 7, BUN 9, Creatinine 0.51 L, Estim Creat Clear Calc 47.78, Est GFR (MDRD) Af Amer 154, Est GFR (MDRD) Non-Af 127, BUN/Creatinine Ratio 17.7, Glucose 94, Calcium 7.6 L, TSH 0.98 Micro: Microbiology 05/28/21 13:28 Nasal Secretion SARS-CoV-2 Antigen (Rapid) - Final SARS-CoV-2 (COVID 19) Radiography Diagnostic Testing: Radiology Impression Chest X-Ray 05/28/21 13:25 IMPRESSION: Right upper lobe, and possibly multifocal pneumonia, either viral/Covid or bacterial. Electronically Signed: Deya Steinberg MD at 15:54 EST Tel , Service support , Physical Exam Narrative GENERAL: cooperative HEENT: Atraumatic; EYES; Anicteric, Normal Conjunctiva NECK; supple, normal thyroid, RESPIRATORY: Diminished to auscultation CARDIOVASCULAR: Irregular S1-S2 GI: soft, normoactive bowel sounds, : No Renal angle tenderness; EXTREMITIES: No edema, no clubbing, MUSCULOSKELETAL: no muscle waisting NEURO: Awake; no lateralizing signs. SKIN: No Rash PSYCH; Flat affect Assessment & Plan Assessment/Plan (1) Atrial fibrillation, new onset: (2) Pneumonia due to 2019-nCoV: PLAN: Patient is a 71-year-old lady who presented with persistent dry cough. In the emergency department patient was found to be in A. fib with RVR. Her Covid test came back positive 1. New onset A. fib with RVR ?Patient was started on Cardizem drip admitted to a monitored bed with plans to wean off Cardizem drip and start patient on p.o. Cardizem. As part of patient's management TSH was ordered. Plan is for patient to complete her work-up with an outpatient echo following her recovery 2. COVID 19 infection ?Imaging studies obtained demonstrated right upper lobe and multifocal pneumonia consistent with viral pneumonia. Patient however is not a candidate for remdesivir due to duration of his symptoms as well as Decadron with patient not being on supplemental oxygen plan is to continue symptomatic treatment 3. Dyslipidemia ?Patient is on Zetia discontinued 4. Hypertension - Blood pressure controlled, home medications continued with dose adjustment as needed 5. DVT prophylaxis ?Started on Eliquis Charges/Coding Visit Charges Inpatient E&M: 58179 Subs Hosp L3
[2021-05-30] VITALS (8 sets, daily range): BP systolic 115–116; BP diastolic 59–83; PULSE 74–121; RESP 18; TEMP 36.7–36.8; O2SAT 94–96
[2021-05-30] MEDS: dilTIAZem 30 MG Tablet PO ×3 (00:12→11:22)
[2021-05-30] MEDS: Loratadine 10 MG Tablet PO (10:09)
[2021-05-30] MEDS: guaiFENesin 1,200 MG Tablet 1200 MG PO (10:09)
[2021-05-30] MEDS: Lisinopril 5 MG Tablet PO (10:09)
[2021-05-30] MEDS: APIXABAN 5 MG TABLET PO (10:09)
[2021-05-30] MEDS: Ezetimibe 10 MG Tablet PO (10:09)
[2021-05-30] MEDS: Cholecalciferol (VIT D3) 25 MCG TABLET (1,000 UNITS) 50 MCG PO (10:09)
--- NOTE | 2021-05-30 11:07 | PCM.DC.SUM ---
Providers Date of Admission: 05/28/21 Primary Care Physician: Dr. Paulie Almendarez MD Reason For Visit: NEWLY DIAGNOSED AFIB Diagnosis Discharge Diagnosis (1) Atrial fibrillation, new onset: Status: Acute Code(s): I48.91 - Unspecified atrial fibrillation (2) Pneumonia due to 2019-nCoV: Status: Acute Code(s): U07.1 - COVID-19; J12.82 - Pneumonia due to coronavirus disease 2019 Medications at Discharge Home Medications ezetimibe 10 mg tablet 10 mg PO QDAY 02/04/18 ipratropium bromide 17 mcg/actuation HFA aerosol inhaler 2 puff INHALATION Q6H g 02/05/18 cholecalciferol (vitamin D3) 50 mcg (2,000 unit) capsule 50 mcg PO DAILY 04/11/20 loratadine 10 mg tablet 10 mg PO DAILY 04/11/20 lisinopril 5 mg tablet 5 mg PO QDAY #90 tab 12/21/20 benzonatate 100 mg capsule 200 mg PO TID PRN #30 cap 05/23/21 apixaban [Eliquis] 5 mg PO BID #60 tab 05/30/21 dexamethasone [Decadron] 6 mg PO DAILY #7 tab 05/30/21 diltiazem HCl [Cardizem CD] 180 mg PO DAILY #60 cap 05/30/21 levofloxacin 750 mg PO DAILY #5 tab 05/30/21 Hospital Course Summary of Care Provided Minutes Spent on Discharge: 40 Hospital Course: Patient is a 71-year-old lady who presented with persistent dry cough. In the emergency department patient was found to be in A. fib with RVR. Her Covid test came back positive 1. New onset A. fib with RVR ?Patient was started on Cardizem drip admitted to a monitored bed with plans to wean off Cardizem drip and start patient on p.o. Cardizem. As part of patient's management TSH was ordered. Plan is for patient to complete her work-up with an outpatient echo following her recovery -Patient was discharged home on Eliquis and Cardizem CD 2. COVID 19 infection ?Imaging studies obtained demonstrated right upper lobe and multifocal pneumonia consistent with viral pneumonia. Patient however is not a candidate for remdesivir due to duration of his symptoms as well as Decadron with patient not being on supplemental oxygen plan is to continue symptomatic treatment 3. Dyslipidemia ?Patient is on Zetia discontinued 4. Hypertension - Blood pressure controlled, home medications continued with dose adjustment as needed 5. DVT prophylaxis ?Started on Eliquis Physical Exam Narrative GENERAL: cooperative HEENT: Atraumatic; EYES; Anicteric, Normal Conjunctiva NECK; supple, normal thyroid, RESPIRATORY: Diminished to auscultation CARDIOVASCULAR: Regular S1-S2 GI: soft, normoactive bowel sounds, : No Renal angle tenderness; EXTREMITIES: No edema, no clubbing, MUSCULOSKELETAL: no muscle waisting NEURO: Awake; no lateralizing signs. SKIN: No Rash PSYCH; Flat affect Weight / BMI Weight Weight: 77.1 kg Body Mass Index (BMI) 28.3 ABG / Lab / Microbiology Data Result Diagrams: 05/29/21 05:56 05/29/21 05:56 Microbiology: Microbiology 05/28/21 13:28 Nasal Secretion SARS-CoV-2 Antigen (Rapid) - Final SARS-CoV-2 (COVID 19) D/C Instructions Discharge Diet: No restrictions Discharge Activity: Return to Normal Activity Call your doctor if you observe: Fever of 101 or Higher, Shortness of breath, Fainting spells and Chest pain Meaningful Use Info Meaningful Use Diagnoses (Choose all that apply): None applicable Discharge Plan Admission Admit Date/Time: 05/28/21 19:33 Attending Provider: James Samaniego Primary Care Provider: Paulie Almendarez Discharge Orders/Prescriptions Prescriptions: New Eliquis 5 mg Tablet 5 mg PO BID Qty: 60 RF: 0 diltiazem HCl [Cardizem CD] 180 mg capsule,extended release 24hr 180 mg PO DAILY Qty: 60 RF: 0 levofloxacin 750 mg tablet 750 mg PO DAILY Qty: 5 RF: 0 dexamethasone [Decadron] 6 mg tablet 6 mg PO DAILY Qty: 7 RF: 0 Continued ipratropium bromide [Atrovent HFA] 17 mcg/actuation HFA aerosol inhaler 2 puff INHALATION Q6H RF: 0 cholecalciferol (vitamin D3) 50 mcg (2,000 unit) capsule 50 mcg PO DAILY RF: 0 loratadine 10 mg tablet 10 mg PO DAILY RF: 0 benzonatate 100 mg capsule 200 mg PO TID PRN (Reason: cough) Qty: 30 RF: 0 ezetimibe [Zetia] 10 mg tablet 10 mg PO QDAY RF: 0 lisinopril 5 mg tablet 5 mg PO QDAY Qty: 90 RF: 3 Referrals / Follow Up: Paulie Almendarez MD [Primary Care Provider] - Within 2 Weeks Disposition Disposition (needs filled in before D/C Order can be placed): Home, Self Care Charges/Coding Visit Charges Inpatient E&M: 60378 Disch Hosp
--- NOTE | 2021-05-30 11:47 | CASEMGMT ---
Pt to be sent home on Eliquis and med e-scribed to [facility] previously. Call to [facility] to check on coverage/co-pay. Per tech, pt's cost is $33, pt updated, voices understanding. Pt already provided Eliquis 30 day free trial card. Pt does not qualify for home oxygen and states no further questions/concerns/needs. SStmariela HAMILTON CM
== END 2021-05-30 15:17 | disposition home or self-care (01) | DRG 308 ==
LOC: ED 19:51 → PCU 20:02
PROVIDERS: Admitting Provider Hospitalist; Emergency Provider Emergency Medicine; PCP Family Medicine; Visit Provider Internal Medicine
DX: I48.91 Unspecified atrial fibrillation (principal); U07.1 COVID-19; J12.82 Pneumonia due to coronavirus disease 2019; I10 Essential (primary) hypertension; E78.5 Hyperlipidemia, unspecified; Z79.899 Other long term (current) drug therapy; Z82.49 Family history of ischemic heart disease and other diseases of the circulatory system
CPT/HCPCS: 36415; 71045; 80048; 83735; 83880; 84443; 84484; 85025; 87426; 93005; 94760; 97802; 99285; J7030; J7040; A4216

== ENCOUNTER 2021-06-10 08:00 | Emergency (ER) | payer MEDICARE, OTHER, SELFPAY ==
[2021-06-10 08:01] VITALS: BP 128/60; PULSE 65; RESP 16; TEMP 36.4; O2SAT 99; BMI 27.3
--- NOTE | 2021-06-10 08:08 | RAD_ITS ---
History: Chest pain EXAMINATION/TECHNIQUE: XR Chest 1 View: Portable COMPARISON: May 28, 2021 FINDINGS: LINES/DEVICES: None. LUNGS: Smaller but denser airspace opacification within the right upper lobe noted as well as mild residual parenchymal infiltrates or scarring within the left lung. No pneumothorax. MEDIASTINUM AND CARDIOVASCULAR STRUCTURES: Cardiac silhouette not enlarged. Central airways and mediastinal contour are unremarkable. BONES AND SOFT TISSUES: Unremarkable. RAD/Chest 1 View (Portable) IMPRESSION: Residual right upper lobe pneumonia and residual infiltrate/post inflammatory change left lung. at 0826 Reported and signed by: Chau Coker MD Electronically Signed: Chau Coker MD at 8:25 EST Tel , Service support ,
--- NOTE | 2021-06-10 08:08 | EKG12_ITS ---
Test Reason : CP Blood Pressure : / mmHG Vent. Rate : 063 BPM Atrial Rate : 063 BPM P-R Int : 130 ms QRS Dur : 082 ms QT Int : 408 ms P-R-T Axes : 021 -06 030 degrees QTc Int : 417 ms Normal sinus rhythm Normal ECG Confirmed by HARMONY RUBIO, JULIANA ([id number]), marketing editor ALEXIA HERNANDEZ ([id number]) on 06/13/2021 9:43:35 AM Referred By: RU Confirmed By:JULIANA ANTUNEZ MD
--- NOTE | 2021-06-10 08:10 | ED.VIS.CHEST ---
HPI History of Present Illness Chief Complaint: Chest Pain Narrative Narrative: Patient presents with chest pain that started about 5 hours ago, she was sleeping. It is retrosternal lower sharp stabbing radiating to her back. No tearing sensation. She has no epigastric pain. She recently got over Covid pneumonia, she had Covid pneumonia 2 weeks ago, she had A. fib and is now on Eliquis. No fevers or chills. No cough or congestion no abdominal pain or epigastric pain. [facility] Medical History (Updated 06/10/21 @ 10:[address] Douglas Levin MD) Essential hypertension Hyperlipidemia Paroxysmal SVT (supraventricular tachycardia) Premature ventricular contraction Home Medications ezetimibe 10 mg tablet 10 mg PO QDAY 02/04/18 [History Last Taken Unknown] ipratropium bromide 17 mcg/actuation HFA aerosol inhaler 2 puff INHALATION Q6H g 02/05/18 [History Last Taken Unknown] cholecalciferol (vitamin D3) 50 mcg (2,000 unit) capsule 50 mcg PO DAILY 04/11/20 [History Last Taken Unknown] loratadine 10 mg tablet 10 mg PO DAILY 04/11/20 [History Last Taken Unknown] lisinopril 5 mg tablet 5 mg PO QDAY #90 tab 12/21/20 [Rx Last Taken Unknown] benzonatate 100 mg capsule 200 mg PO TID PRN #30 cap 05/23/21 [Rx Last Taken Unknown] apixaban [Eliquis] 5 mg PO BID #60 tab 05/30/21 [Rx Last Taken Unknown] dexamethasone [Decadron] 6 mg PO DAILY #7 tab 05/30/21 [Rx Last Taken Unknown] diltiazem HCl [Cardizem CD] 180 mg PO DAILY #60 cap 05/30/21 [Rx Last Taken Unknown] levofloxacin 750 mg PO DAILY #5 tab 05/30/21 [Rx Last Taken Unknown] Allergy/AdvReac Type Severity Reaction Status Date / Time pitavastatin [From Livalo] Allergy Severe Itching Verified 06/10/21 08:06 colestipol AdvReac Severe Constipatio Verified 06/10/21 08:06 n meloxicam AdvReac Severe Hallucinati Verified 06/10/21 08:06 ons amlodipine AdvReac Intermediate Increased Verified 06/10/21 08:06 pulse Beef Containing Products AdvReac Upset Verified 06/10/21 08:06 Stomach ibuprofen AdvReac Other Verified 06/10/21 08:06 Penicillins [PCN] AdvReac Hives Verified 06/10/21 08:06 Family History Mother CAD (coronary artery disease) Esophageal cancer Father CAD (coronary artery disease) Atrial fibrillation Lung cancer Surgical History H/O: hysterectomy History of external ear surgery [place] teeth removed Social History household members: spouse housing: house Smoking Status: Never smoker alcohol intake: never what type of physical activity do you participate in: walking frequency: 3-4 times per week do you feel safe at home: Yes ROS ROS ED ROS Narrative Past medical history: Reviewed, as in HPI Medications: Reviewed Social history: Noncontributory Review of systems: All systems negative except as indicated General: No fever Eyes: No visual changes ENT: No upper airway congestion, normal voice Neck: No neck pain Cardiovascular: Chest pain as in HPI Respiratory: No shortness of breath or cough Gastrointestinal: No abdominal pain, nausea vomiting or diarrhea Genitourinary: No dysuria Musculoskeletal: Denies myalgias no difficulty with ambulation Skin: No rash Neurological: No memory loss, confusion or any focal weakness Psych: No recent behavioral changes Hematologic: No easy bleeding or easy bruising EXAM Physical Exam Narrative Exam Narrative: Physical exam General: Well nourished, Well developed, No Acute Distress Head: Normocephalic, Atraumatic Eyes: Conjunctiva not pale ENT: Moist mucous membranes Neck: Supple, Nontender, No lymphadenopathy Cardiovascular: Regular rate, Regular rhythm Respiratory: No distress, CTA bilaterally Abdomen: Soft, Nontender, Nondistended Back: Nontender, Normal Inspection. Negative for: CVA tenderness Extremities: Nontender, No edema Skin: Normal color, No rash Neurological: Alert, Normal Strength, Normal Sensation Psychological: Normal affect Const Vital Signs: 06/10/21 08:01 06/10/21 08:04 06/10/21 08:55 Temperature 97.6 F L Temperature Source Temporal Pulse Rate 65 65 Respiratory Rate 16 15 Respiratory Effort Normal Non-Labored Blood Pressure 128/60 H 132/78 H Blood Pressure Mean 82 96 Pulse Ox 99 98 Oxygen Delivery Method Room Air Room Air MDM MDM MDM Narrative Medical decision making narrative: Patient has a normal work-up, she has slight leukocytosis but otherwise there is no evidence of overt pneumonia. However because there are immature granulocytes and because there is a possibility of having post Covid pneumonia I will be cautious and treat with antibiotics. Patient is anticoagulated and has a normal D-dimer, both troponins are negative per our hospital protocol she has essentially been ruled out for ACS. She received Toradol and her pain is improved, she likely has pleurisy from the Covid pneumonia. I will discharge her in stable condition. She appears well. Lab Data Labs: Laboratory Results - last 24 hr 06/10/21 06/10/21 06/10/21 08:07 08:07 08:07 WBC 15.6 H RBC 5.34 Hgb 15.9 H Hct 46.4 MCV 86.9 MCH 29.8 MCHC 34.3 RDW Std Deviation 40.0 RDW Coeff of Gregoria 12.8 Plt Count 350 MPV 10.5 Immature Gran % (Auto) 2.000 H Neut % (Auto) 77.8 H Lymph % (Auto) 11.0 L [place] % (Auto) 7.9 Eos % (Auto) 1.0 Baso % (Auto) 0.3 Absolute Neuts (auto) 12.2 H Absolute Lymphs (auto) 1.72 Nucleated RBC % 0 D-Dimer Quant (PE/DVT) 0.46 Sodium 138 Potassium 3.7 Chloride 104 Carbon Dioxide 28.0 Anion Gap 6 BUN 17 Creatinine 0.92 Estim Creat Clear Calc 51.93 Est GFR (MDRD) Af Amer 77 Est GFR (MDRD) Non-Af 64 BUN/Creatinine Ratio 18.4 Glucose 116 H Calcium 8.6 Total Bilirubin 0.70 AST 18 ALT 38 Alkaline Phosphatase 89 Troponin I High Sens 6 Total Protein 6.5 Albumin 2.7 L Globulin 3.8 Albumin/Globulin Ratio 0.7 L 06/10/21 10:05 WBC RBC Hgb Hct MCV MCH MCHC RDW Std Deviation RDW Coeff of Gregoria Plt Count MPV Immature Gran % (Auto) Neut % (Auto) Lymph % (Auto) [place] % (Auto) Eos % (Auto) Baso % (Auto) Absolute Neuts (auto) Absolute Lymphs (auto) Nucleated RBC % D-Dimer Quant (PE/DVT) Sodium Potassium Chloride Carbon Dioxide Anion Gap BUN Creatinine Estim Creat Clear Calc Est GFR (MDRD) Af Amer Est GFR (MDRD) Non-Af BUN/Creatinine Ratio Glucose Calcium Total Bilirubin AST ALT Alkaline Phosphatase Troponin I High Sens 7 Total Protein Albumin Globulin Albumin/Globulin Ratio Radiography Diagnostic Testing: Clinical Impression(s) from Imaging Studies Chest X-Ray 06/10/21 08:08 IMPRESSION: Residual right upper lobe pneumonia and residual infiltrate/post inflammatory change left lung. at 0826 Reported and signed by: Chau Coker MD Electronically Signed: Chau Coker MD at 8:25 EST Tel , Service support , EKG Initial EKG: Comments: Normal sinus rhythm with a rate of 63. Normal TX and QTc intervals. No ischemic changes. Interpreted by emergency doctor. Discharge Plan Triage Chief Complaint: Chest Pain ED Provider: Douglas Levin Dx/Rx/DC Orders Clinical Impression: Chest pain Prescriptions: No Action ipratropium bromide [Atrovent HFA] 17 mcg/actuation HFA aerosol inhaler 2 puff INHALATION Q6H RF: 0 cholecalciferol (vitamin D3) 50 mcg (2,000 unit) capsule 50 mcg PO DAILY RF: 0 loratadine 10 mg tablet 10 mg PO DAILY RF: 0 benzonatate 100 mg capsule 200 mg PO TID PRN (Reason: cough) Qty: 30 RF: 0 Eliquis 5 mg Tablet 5 mg PO BID Qty: 60 RF: 0 diltiazem HCl [Cardizem CD] 180 mg capsule,extended release 24hr 180 mg PO DAILY Qty: 60 RF: 0 levofloxacin 750 mg tablet 750 mg PO DAILY Qty: 5 RF: 0 dexamethasone [Decadron] 6 mg tablet 6 mg PO DAILY Qty: 7 RF: 0 ezetimibe [Zetia] 10 mg tablet 10 mg PO QDAY RF: 0 lisinopril 5 mg tablet 5 mg PO QDAY Qty: 90 RF: 3 Primary Care Provider: Paulie Almendarez Referrals: Paulie Almendarez MD [Primary Care Provider] -
[2021-06-10 08:18] LABS: Absolute Lymphocyte Count 1.72 X10^3/uL (0.83-4.51); Absolute Neutrophil Count 12.2 X10^3/uL (2.0-7.7); Basophil# 0.04 X10^3/uL; Basophil% 0.3 % (0-1); Eosinophil# 0.16 X10^3/uL; Hematocrit 46.4 % (37-47); Hemoglobin 15.9 g/dL (12.0-15.0); Lymphocyte # 1.72 X10^3/ul (0.83-4.51); Mean Corp Hgb Conc 34.3 g/dL (32-36); Mean Corpuscular Hgb 29.8 pg (27.0-32.0); Mean Corpuscular Volume 86.9 fL (81-99); Mean Platelet Vol. 10.5 fl (6.2-12.0); Monocyte# 1.23 X10^3/uL; Monocyte% 7.9 % (0-10); NRBC Flagged by Analyzer 0 % (0-5); Neutrophil # 12.16 X10^3/uL (2.7-7.7); Neutrophil % 77.8 % (47-70); Platelet Count 350 K/mm3 (150-450); RBC Distribution Width CV 12.8 % (11.6-14.6); Red Blood Count 5.34 M/mm3 (4.2-5.4); White Blood Count 15.6 K/mm3 (4.4-11.0)
[2021-06-10 08:33] LABS: ALB/GLOB Ratio 0.7 RATIO (0.9-2.4); AST(SGOT) 18 U/L (15-37); Alanine Aminotransfer ALT/SGPT 38 U/L (13-56); Albumin, Serum 2.7 g/dL (3.2-5.0); Alkaline Phosphatase 89 U/L (45-117); Anion Gap 6 (5-15); BUN 17 mg/dL (7-18); BUN/Creat Ratio 18.4 RATIO (10-20); Calcium,Total 8.6 mg/dL (8.5-10.1); Chloride 104 mmol/L (98-107); Creatinine, Serum 0.92 mg/dL (0.55-1.02); EST Glomerular Filtration Rate 64 mL/min (>60); Est Glom Filt Rate - Afr Amer 77 mL/min (>60); Estimated Creatinine Clearance 51.93 ml/min; Globulin 3.8 g/dL (2.2-4.2); Glucose 116 mg/dL (74-106); Potassium 3.7 mmol/L (3.5-5.1); Protein, Total 6.5 g/dL (6.4-8.2); Sodium Level 138 mmol/L (136-145); Troponin-I HS 6 pg/mL (3.0-54.0)
[2021-06-10 08:52] LABS: D-Dimer Quantitative (DVT/PE) 0.46 FEU/ug/m (0.27-0.49)
[2021-06-10 08:55] VITALS: BP 132/78; PULSE 65; RESP 15; O2SAT 98
--- NOTE | 2021-06-10 09:09 | NURSING ---
PT ASLEEP IN BED WITH HERE AT BEDSIDE
[2021-06-10 10:25] LABS: Troponin-I HS 7 pg/mL (3.0-54.0)
== END 2021-06-10 11:00 | disposition home or self-care (01) ==
PROVIDERS: Emergency Provider Emergency Medicine; PCP Family Medicine
DX: R07.9 Chest pain, unspecified (principal); M54.9 Dorsalgia, unspecified; I10 Essential (primary) hypertension; E78.5 Hyperlipidemia, unspecified; I48.91 Unspecified atrial fibrillation; Z79.01 Long term (current) use of anticoagulants; Z86.16 Personal history of COVID-19; Z79.1 Long term (current) use of non-steroidal anti-inflammatories (NSAID); Z79.899 Other long term (current) drug therapy; Z79.52 Long term (current) use of systemic steroids
CPT/HCPCS: 36415; 71045; 80053; 84484; 85025; 85379; 93005; 99284; A4216

== ENCOUNTER 2021-07-26 10:46 | Outpatient (CLI) | payer MEDICARE, OTHER, SELFPAY ==
--- NOTE | 2021-07-26 10:52 | ECHOD_ITS ---
Reason For Study: AFIB Procedure This was a 2D Doppler, Color Flow transthoracic echocardiogram. Exam performed in department. Left Ventricle Normal LV size. Left ventricular systolic function is normal. The estimated ejection fraction is 65 %. No evidence for diastolic dysfunction. No regional wall motion abnormalities noted. Right Ventricle Normal RV size. Normal systolic function. Atria Normal left atrium. Normal right atrium. No doppler evidence for ASD. Mitral Valve There is no mitral annular calcification. Mild focal mitral valve calcification of the anterior leaflet. The mitral valve chordae are thickened and/or calcified. Mild (1+) mitral valve insufficiency. Tricuspid Valve Normal tricuspid valve. Mild tricuspid valve insufficiency. Right ventricular systolic pressure estimated to be 27 mmHg. Aortic Valve Trisinus/trileaflet aortic valve. Mild diffuse aortic valve thickening. Trivial aortic valve insufficiency. Pulmonic Valve The pulmonic valve is not well visualized. Great Vessels Normal sized aortic root. Pericardium/Pleural No pericardial effusion. MMode/2D Measurements & Calculations LVIDd: 3.7 cm IVSd: 0.84 cm Ao root diam: 3.1 cm LVIDs: 2.4 cm LVPWd: 0.86 cm RVDd: 4.0 cm FS: 34.6 % LAV(MOD-bp): 22.7 ml LVAd ap4: 20.8 cm2 LVAd ap2: 18.9 cm2 LAV(MOD-bp) Indexed: 12.4 ml/m2 LVLd ap4: 6.6 cm LVLd ap2: 7.3 cm LAV(MOD-sp2): 23.2 ml EDV(MOD-sp4): 52.3 ml EDV(MOD-sp2): 40.1 ml LAV(MOD-sp4): 22.7 ml EDV(sp4-el): 55.9 ml EDV(sp2-el): 41.5 ml LVAs ap4: 12.3 cm2 LVAs ap2: 10.1 cm2 LVLs ap4: 5.8 cm LVLs ap2: 5.9 cm ESV(MOD-sp4): 21.5 ml ESV(MOD-sp2): 14.6 ml ESV(sp4-el): 22.1 ml ESV(sp2-el): 14.6 ml EF(MOD-sp4): 58.9 % EF(MOD-sp2): 63.5 % EF(sp4-el): 60.4 % SV(MOD-sp4): 30.8 ml SV(MOD-sp2): 25.4 ml SV(sp4-el): 33.7 ml LA dimension(2D): 2.8 cm LA A4 area: 12.1 cm2 RA A4 area: 10.5 cm2 Doppler Measurements & Calculations MV E max georgi: 68.0 cm/sec Lat Peak E' Georgi: 7.7 cm/sec Med Peak E' Georgi: 5.9 cm/sec MV A max georgi: 88.4 cm/sec E/E' lat: 8.8 E/E' med: 11.6 MV E/A: 0.77 Ao V2 max: 128.2 cm/sec LV V1 max: 92.2 cm/sec TR max georgi: 245.4 cm/sec Ao max P.6 mmHg LV V1 max P.4 mmHg TR max P.1 mmHg ECHO/Echo Complete Interpretation Summary Left ventricular systolic function is normal. The estimated ejection fraction is 65 %. Mild focal mitral valve calcification of the anterior leaflet. The mitral valve chordae are thickened and/or calcified. Mild (1+) mitral valve insufficiency. Mild tricuspid valve insufficiency. Mild diffuse aortic valve thickening. Trivial aortic valve insufficiency. Right ventricular systolic pressure estimated to be 27 mmHg. No evidence for diastolic dysfunction. Ordering Physician: Missy Cho Referring Physician: LILLIAN MORENO Performed By: Lilly Dye, DENTONCS, RVT
== END 2021-07-26 23:59 | disposition home or self-care (01) ==
LOC: CVS 10:47
PROVIDERS: PCP Family Medicine; Visit Provider Nurse Practitioner Gerontology
DX: I49.3 Ventricular premature depolarization (principal); I48.91 Unspecified atrial fibrillation
CPT/HCPCS: 93306

== ENCOUNTER 2021-08-30 08:37 | Outpatient (CLI) | payer MEDICARE, OTHER, SELFPAY ==
[2021-08-30 10:42] LABS: Thyroid Stim Hormone (TSH) 2.04 uIU/mL (0.358-3.74)
[2021-08-30 11:41] LABS: AST(SGOT) 13 U/L (15-37); Alanine Aminotransfer ALT/SGPT 17 U/L (13-56); Albumin, Serum 3.2 g/dL (3.2-5.0); Alkaline Phosphatase 111 U/L (45-117); Bilirubin, Direct 0.16 mg/dL (0.00-0.30); Cholesterol 200 mg/dL (200); Globulin 3.8 g/dL (2.2-4.2); High Density Lipoprotein 55 mg/dL; Triglycerides 119 mg/dL; Very Low Density Lipoprotein 24 mg/dL (5-40)
== END 2021-08-30 23:59 | disposition home or self-care (01) ==
LOC: MTLAB 08:39
PROVIDERS: Nurse Practitioner Gerontology; PCP Family Medicine; Referring Provider Internal Medicine Cardiovascular Disease; Visit Provider Internal Medicine Cardiovascular Disease
DX: E78.00 Pure hypercholesterolemia, unspecified (principal); L65.9 Nonscarring hair loss, unspecified
CPT/HCPCS: 36415; 80061; 80076; 84439; 84443

== ENCOUNTER → 2022-07-23 | Outpatient (CLI) | payer MEDICARE, OTHER, SELFPAY ==
[2022-07-23 12:42] LABS: AST(SGOT) 24 U/L (15-37); Alanine Aminotransfer ALT/SGPT 27 U/L (13-56); Albumin, Serum 3.5 g/dL (3.2-5.0); Alkaline Phosphatase 106 U/L (45-117); Bilirubin, Direct 0.14 mg/dL (0.00-0.30); Cholesterol 242 mg/dL (200); Globulin 3.8 g/dL (2.2-4.2); High Density Lipoprotein 60 mg/dL; Protein, Total 7.3 g/dL (6.4-8.2); Triglycerides 135 mg/dL; Very Low Density Lipoprotein 27 mg/dL (5-40)
== END | disposition home or self-care (01) ==
PROVIDERS: PCP Family Medicine; Referring Provider Internal Medicine Cardiovascular Disease; Visit Provider Internal Medicine Cardiovascular Disease
DX: E78.5 Hyperlipidemia, unspecified (principal)
CPT/HCPCS: 36415; 80061; 80076

== ENCOUNTER → 2023-02-20 | Outpatient (CLI) | payer MEDICARE, OTHER, SELFPAY ==
[2023-02-20 13:02] LABS: AST(SGOT) 24 U/L (15-37); Alanine Aminotransfer ALT/SGPT 28 U/L (13-56); Albumin, Serum 3.2 g/dL (3.2-5.0); Alkaline Phosphatase 107 U/L (45-117); Bilirubin, Direct 0.15 mg/dL (0.00-0.30); Cholesterol 221 mg/dL (200); Globulin 3.8 g/dL (2.2-4.2); High Density Lipoprotein 58 mg/dL; Triglycerides 121 mg/dL; Very Low Density Lipoprotein 24 mg/dL (5-40)
== END | disposition home or self-care (01) ==
PROVIDERS: PCP Family Medicine; Referring Provider Nurse Practitioner Gerontology; Visit Provider Nurse Practitioner Gerontology
DX: E78.00 Pure hypercholesterolemia, unspecified (principal)
CPT/HCPCS: 36415; 80061; 80076

== ENCOUNTER → 2023-04-30 | Outpatient (CLI) | payer MEDICARE, OTHER, SELFPAY ==
--- NOTE | 2023-04-30 12:42 | RAD_ITS ---
STUDY: X-RAY CHEST REASON FOR EXAM: Female, 73 years old. Bronchitis TECHNIQUE: PA and lateral views of the chest. COMPARISON: 06/10/2021 FINDINGS: The lungs are clear and expanded. There is no demonstrated pleural abnormality. Normal size heart. Normal mediastinum and nicholas. Normal visualized pulmonary arteries. Normal visualized aortic arch and descending thoracic aorta. Normal visualized thoracic spine. Normal visualized ribs, clavicles, and shoulders. There is no demonstrated abnormality of the visualized soft tissue structures of the upper abdomen. RAD/Chest PA and Lateral IMPRESSION: Normal x-ray examination of the chest. Electronically Signed: Serg Squires MD at 22:54 EST ,
== END | disposition home or self-care (01) ==
LOC: MTRAD 12:41
PROVIDERS: PCP Family Medicine; Referring Provider Family Medicine; Visit Provider Family Medicine
DX: J40 Bronchitis, not specified as acute or chronic (principal)
CPT/HCPCS: 71046

== ENCOUNTER → 2023-07-30 | Outpatient (CLI) | payer MEDICARE, OTHER, SELFPAY ==
--- NOTE | 2023-07-30 14:10 | RAD_ITS ---
STUDY: X-RAY - LEFT KNEE REASON FOR EXAM: Female, 73 years old. L medial knee pain, subacute, lateral to patella at tibial platea TECHNIQUE: 4 view(s) of the knee. COMPARISON: None. FINDINGS: Normal visualized distal femur. Normal visualized proximal tibia and fibula. Normal proximal tibiofibular articulation. Narrowed medial femorotibial compartment. Normal lateral femorotibial compartment. Mildly narrowed medial compartment of the patellofemoral articulation. The soft tissue structures are unremarkable. RAD/Knee 4 or More Views IMPRESSION: Degenerative changes. No acute fracture or other significant bony pathology. Electronically Signed: Chad Madden MD at 17:33 EST ,
--- OUTSIDE RECORDS SUMMARY | 2023-07-30 18:59 | XMS RPT_ITS | CCD ---
Author Name Unknown Address [address] [place] [address] Organization [facility] Care Team Providers Care Granulator Tender Name Role Phone Sherly Acosta Unavailable Unavailable Sherly Acosta Unavailable Unavailable Roselyn Reyna Unavailable Unavailable Roselyn Reyna Unavailable Unavailable Lavell RUBIO, Douglas Rios Unavailable [phone] Padmini HAMILTON, Celi Ge Unavailable Unavailable Allergies Allergy Classification Reported Allergen(s) Allergy Type Date of Onset Reaction(s) Facility (6 sources) amLODIPine drug allergy 4 increased pulse [facility] Work Phone: [phone] (6 sources) colestipol drug allergy 7 severe constipation and hemorrhoids [facility] Work Phone: [phone] (6 sources) ibuprofen drug allergy 4 hallucinations [facility] Work Phone: [phone] (6 sources) meloxicam drug allergy 4 hallucinations [facility] Work Phone: [phone] (6 sources) Penicillins (Antibiotic) drug allergy 4 rash [facility] Work Phone: [phone] (6 sources) pitavastatin drug allergy 7 messed up my mind and itching all over [facility] Work Phone: Medications Completed/Discontinued Medications Medication Drug Class(es) Dates Sig (Normalized) Sig (Original) atorvastatin 20 mg oral tablet (12 sources) HMG-CoA Reductase Inhibitor Start: 04-11-2016 End: 05-28-2016 take 1 tablet by mouth once daily ATORVASTATIN CALCIUM 20 MG TABS One tablet by mouth daily ATORVASTATIN CALCIUM [id number] Laine Gaspar RN COLESTIPOL HCL (18 sources) Bile Acid Sequestrant Start: 05-28-2016 take 2 tablets by mouth twice daily COLESTID 1 GM TABS Two tablets by mouth twice daily COLESTIPOL HCL [id number] Laine Gaspar RN Problems Active Problems Problem Classification Problem Date Documented Date Episodic/Chronic Cardiac dysrhythmias (12 sources) Paroxysmal supraventricular tachycardia; Translations: [Ventricular premature beats] Onset: 08-26-2013 08-27-2013 Chronic Disorders of lipid metabolism (6 sources) Hyperlipidemia; Translations: [Hyperlipidemia, unspecified] Onset: 05-28-2016 05-28-2016 Chronic Essential hypertension (6 sources) Hypertensive disorder; Translations: [Essential (primary) hypertension] Onset: 08-26-2013 08-26-2013 Chronic Past or Other Problems Problem Classification Problem Date Documented Da te Episodic/Chronic Cardiac dysrhythmias (6 sources) Palpitations; Translations: [Palpitations] Onset: 08-26-2013 08-26-2013 Episodic Heart valve disorders (6 sources) Heart murmur; Translations: [Cardiac murmur, unspecified] Onset: 04-14-2014 04-14-2014 Episodic Malaise and fatigue (6 sources) Fatigue; Translations: [Other fatigue] Onset: 08-27-2013 08-27-2013 Episodic Nonspecific chest pain (6 sources) Tight chest; Translations: [Other chest pain] Onset: 08-27-2013 08-27-2013 Episodic Other nutritional; endocrine; and metabolic disorders (6 sources) Body mass index (BMI) 27.0-27.9, adult; Translations: [Body mass index (BMI) 27.0-27.9, adult] Onset: 08-27-2013 08-27-2013 Episodic Results Test Name Value Interpretation Reference Range Facil ity Vital Signs Date Time Vital Sign Value Performing Clinician Caitlyn butcher 02-13-2017 16:01-0400 BMI (Body Mass Index) 27.29 kg/m2 [facility] Work Phone: 02-13-2017 16:01-0400 BP Diastolic 78 mm[Hg] [facility] Work Phone: 02-13-2017 16:01-0400 BP Systolic 110 mm[Hg] [facility] Work Phone: 02-13-2017 16:01-0400 Height 165.1 cm [facility] Work Phone: 02-13-2017 16:01-0400 Pulse (Heart Rate) 80 /min [facility] Work Phone: 02-13-2017 16:01-0400 Respiratory Rate 16 /min [facility] Work Phone: 02-13-2017 16:01-0400 Weight 74.39 kg [facility] Work Phone: 04-11-2016 13:39-0400 BMI (Body Mass Index) 27.62 kg/m2 [facility] Work Phone: 04-11-2016 13:39-0400 BP Diastolic 72 mm[Hg] Celi Washington RN [facility] Work Phone: 04-11-2016 13:39-0400 BP Systolic 124 mm[Hg] Celi Washington RN [facility] Work Phone: 04-11-2016 13:39-0400 BSA (Body Surface Area) 1.83 m2 Celi Washington RN [facility] Work Phone: 04-11-2016 13:39-0400 Pulse (Heart Rate) 68 /min [facility] Work Phone: 04-11-2016 13:39-0400 Respiratory Rate 16 /min Celi Washington RN [facility] Work Phone: 04-11-2016 13:39-0400 Weight 75.3 kg [facility] Work Phone: 08-27-2013 11:13-0400 Height 165.1 cm Celi Washington RN [facility] Work Phone: Procedures Date Procedure Procedure Detail Performing Clinician Start: 02-13-2017 End: 02-13-2017 Follow Up Appt 1 year Douglas Freire Start: 02-13-2017 End: 02-13-2017 PFM Douglas Monte MD Start: 11-30-2016 End: 12-25-2016 *Hepatic Function Panel Douglas Monte MD Start: 08-20-2016 End: 08-21-2016 *Hepatic Function Panel Douglas Monte MD Start: 08-20-2016 End: 08-21-2016 Lipid panel [AGGREGATE] Douglas Monte MD Start: 04-11-2016 End: 05-28-2016 *Hepatic Function Panel Douglas Monte MD Start: 04-11-2016 End: 04-11-2016 Follow Up Appt 1 year Douglas Freire Start: 04-11-2016 End: 05-28-2016 Lipid panel [AGGREGATE] Douglas Monte MD Start: 04-11-2016 End: 04-11-2016 PFM Douglas Monte MD Start: 04-13-2015 End: 04-14-2015 Documentation of current medications Douglas Monte MD Start: 04-13-2015 End: 01-23-2017 Follow Up Appt 1 year Douglas Freire Start: 04-13-2015 End: 05-25-2015 Follow Up BP Check Douglas Monte MD Start: 04-13-2015 End: 01-23-2017 PFM Douglas Motne MD Start: 04-14-2014 End: 04-14-2014 Electrocardiogram, complete Douglas murphy MD Start: 04-14-2014 End: 04-14-2014 Follow Up Appt 1 year Douglas Freire Start: 04-14-2014 End: 04-14-2014 PFM Douglas Monte MD Start: 10-06-2013 End: 10-06-2013 Follow Up Appt 6 months Laine rico PA-C Work Phone: Start: 10-06-2013 End: 10-06-2013 PFM Laine Chapman PA-C Work Phone: Start: 08-27-2013 End: 08-28-2013 Chest x-ray Douglas Monte MD Start: 08-27-2013 End: 10-05-2013 Echocardiography Douglas Monte MD Start: 08-27-2013 End: 08-27-2013 Follow Up Appt 6 weeks Douglas Monte MD Start: 08-27-2013 End: 08-27-2013 MMM Douglas Monte MD Start: 08-27-2013 End: 10-05-2013 Nuclear stress test -exercise Douglas marvin MD Plan of Treatment Date Care Activity Detail Author Start: 02-12-2018 End: 02-12-2018 Appointment Appointment [facility] Work Phone: Start: 02-13-2017 End: 02-13-2017 Appointment Appointment [facility] Work Phone: Start: 02-13-2017 End: 02-13-2017 Appointment Appointment [facility] Work Phone: Start: 02-13-2017 End: 02-13-2017 Follow Up Appt 1 year Follow Up Appt 1 year [facility] Work Phone: Start: 02-13-2017 End: 02-13-2017 PFM PFM [facility] Work Phone: Start: 11-30-2016 End: 12-25-2016 *Hepatic Function Panel *Hepatic Function Panel [facility] Work Phone: Start: 11-30-2016 End: 08-31-2016 Lipid panel [AGGREGATE] *Lipid Profile CC PCP [facility] Work Phone: Start: 08-20-2016 End: 08-21-2016 *Hepatic Function Panel *Hepatic Function Panel [facility] Work Phone: Start: 08-20-2016 End: 08-21-2016 Lipid panel [AGGREGATE] *Lipid Profile CC PCP [facility] Work Phone: Start: 04-11-2016 End: 05-28-2016 *Hepatic Function Panel *Hepatic Function Panel [facility] Work Phone: Start: 04-11-2016 End: 04-11-2016 Follow Up Appt 1 year Follow Up Appt 1 year [facility] Work Phone: Start: 04-11-2016 End: 05-28-2016 Lipid panel [AGGREGATE] *Lipid Profile CC PCP [facility] Work Phone: Start: 04-11-2016 End: 04-11-2016 PFM PFM [facility] Work Phone: Start: 04-13-2015 End: 01-23-2017 Follow Up Appt 1 year Follow Up Appt 1 year [facility] Work Phone: Start: 04-13-2015 End: 05-25-2015 Follow Up BP Check Follow Up BP Check [facility] Work Phone: Start: 04-13-2015 End: 01-23-2017 PFM PFM [facility] Work Phone: Start: 04-14-2014 End: 04-14-2014 Electrocardiogram, complete EKG (In office) [facility] Work Phone: Start: 04-14-2014 End: 04-14-2014 Follow Up Appt 1 year Follow Up Appt 1 year [facility] Work Phone: Start: 04-14-2014 End: 04-14-2014 PFM PFM [facility] Work Phone: Start: 10-06-2013 End: 10-06-2013 Follow Up Appt 6 months Follow Up Appt 6 months [facility] Work Phone: Start: 10-06-2013 End: 10-06-2013 PFM PFM [facility] Work Phone: Start: 08-27-2013 End: 08-28-2013 Chest x-ray X-Ray, Chest, PA & Lateral [facility] Work Phone: Start: 08-27-2013 End: 08-27-2013 Echocardiography Echocardiogram (complete) [facility] Work Phone: Start: 08-27-2013 End: 08-27-2013 Follow Up Appt 6 weeks Follow Up Appt 6 weeks [facility] Work Phone: Start: 08-27-2013 End: 08-27-2013 MMM MMM [facility] Work Phone: Start: 08-27-2013 End: 08-27-2013 Nuclear stress test -exercise Nuclear stress test -exercise [facility] Work Phone: Patient Education [facility] Work Phone: Additional Source Comments FOR RECORDS PERTAINING TO PATIENTS WHO ARE OR HAVE BEEN ENROLLED IN A CHEMICAL DEPENDENCY/SUBSTANCEABUSE PROGRAM, SOME INFORMATION MAY BE OMITTED. This clinical summary was aggregated from multiple sources. Caution should be exercised in using it in the provision of clinical care. This summary normalizes information from multiple sources, and as a consequence, information in this document may materially change the coding, format and clinical context of patient data. In addition, data may be omitted in some cases. CLINICAL DECISIONS SHOULD BE BASED ON THE PRIMARY CLINICAL RECORDS. [facility]. provides no warranty or guarantee of the accuracy or completeness of information in this document.
== END | disposition home or self-care (01) ==
LOC: MTRAD 14:09
PROVIDERS: PCP Family Medicine; Referring Provider Family Medicine; Visit Provider Family Medicine
DX: M25.562 Pain in left knee (principal)
CPT/HCPCS: 73564

== ENCOUNTER 2023-09-04 11:30 | Outpatient (RCR) | payer MEDICARE, OTHER, SELFPAY ==
--- NOTE | 2023-08-07 11:43 | HP.PTEVAL ---
Patient's Visit Information Visit Information Visit Information: HAKAN RM is a 73 year old F referred to Physical Therapy by Dr. Paulie Almendarez MD with a diagnosis of L knee pain, meniscus. Date of Evaluation: 08/07/23 Physical Therapist: Paulie Nathan, DPT, OCS, CSCS Visit Plan Frequency: 2x /Week Duration: 4-6 Weeks Plan: 2x/week for 4-6 weeks as needed for.. 1. L knee ROM, sTM quad and HS adn stretech of same to HEP 2. strength of L knee painfree progression. 3. TENS with ice as needed. Currently doing QS, HS, SLRx3 via HEP from [facility]. Subjective Subjective: L knee hurts. Last January went down two steps and something twisted in L knee. Hurt bad instantl. Limped away and went to doctor who ordered ice. Went on vacation for 5 weeks and could not walk the beach more than two times. Got better about 70%. Worsening again now. Pain is medial L knee . Has been going up and down scaffolding. pain to 6/10 with ladder climbing after and remains. Lying in bed is tough to bend knee and it wakes her up. That is the last couple. Not employed. Hobbies include house remodelling and wall papering lately. No regular exercise. Basic ADLs getting done but it hurts more. better at rest. Pain L knee: Pain Intensity (Out of 10): 0 Comment: 0 at rest, 3/10 transitions Objective Objective: L mild antalgia in gait today but I. Not feeling pain with ambulation. Trasnfers are painful L knee but I. Steps reciprocal and pain with L knee WB and bending eccentrically. 0 with pain to 114 AROM L knee pain at end ranges. R knee 0-130. sensation WNL to gross light touch in LE reflexes 2/3 patella and achilles B. Strength L knee ext 4- and painful, flexion 4- , R knee 4/5 hip is 3+ B abd , ext, flexion. ankles are 4+/5 B without pain. SLR is slow on L with knee straight but able and painful. Balance/Special Test Scores Functional Gait Assessment Score: 29 % Disability: 3.3400 Lower Extremity Functional Score: 50 Goals Goal 1:: 0-125 AROM L knee without pain to smooth out function Goal Time Frame: 4-6 Weeks Goal 2:: Walk and steps without pain Goal Time Frame: 4-6 Weeks Goal 3:: Sleep without waking at night Goal Time Frame: 2-4 Weeks Goal 4:: I approrpiate HEP to limit future problems Goal Time Frame: 4-6 Weeks Goal 5:: LEFS 62 Goal Time Frame: 4-6 Weeks Rehabilitation Potential Physical Therapy Diagnosis: L knee limited rom, pain and weakness limting comfortable funciton. Rehabilitation Potential: Fair Anticipated Interventions Patient/Client Instruction: Educate patient on: Condition and Risk Factors For the Purpose of:: To decrease pain, To increase ROM, To improve nutrient delivery to tissue, To increase tolerance to activity/condition/position, To improve ability of physical actions for home/community/work/leisure and To improve gait and locomotor functions Therapeutic Exercise to Include: Strength training, Flexibilty training, Passive ROM and Active ROM For the Purpose of:: To decrease pain, To increase ROM, To improve nutrient delivery to tissue, To improve muscle performance and motor function, To increase tolerance to activity/condition/position, To improve ability of physical actions for home/community/work/leisure and To improve gait and locomotor functions Manual Therapy Techniques to Include: Passive ROM and Soft tissue mobilization For the Purpose of:: To decrease pain, To increase ROM and To improve nutrient delivery to tissue TENS: Yes Cryotherapy (ice pack, ice massage): Yes For the Purpose of:: To decrease pain, To decrease swelling/inflammation and To increase ROM Text: Thank you for the opportunity to evaluate your patient. For Medicare and Medicare HMO plans, please review the plan of care and approve it. It will need to be FAXED BACK to us at [phone] for Medicare purposes. For Medicare only, by signing this I certify the plan of care. Please let me know if there are questions or concerns regarding this plan of care. Physician Signature: Date:
--- NOTE | 2023-09-04 12:21 | HP.PTDCSUM ---
Discharge Summary D/C summary: It has been my pleasure to treat HAKAN RM referred by Dr. Paulie Almendarez MD, with the diagnosis of L knee pain, meniscus for a total of 9 visit(s). Discharge Date: 09/04/23 Please see the following information for a summary of their discharge status. Subjective Subjective: Not a whole lot better. Pain this week 3/10 intermittently brought on with steps going down. Still hurts at rest unless she props it up. Sleeping is interrupted sometimes but not frequently. Activities: normal and does everything. Pain L knee: Pain Intensity (Out of 10): 3 Overall Improvement % Improvement: 10 Objective Objective/Function: Full AROM B knees but L slightly tight feeling at end of ext adn flexion(painful). Steps reciprocal but pain descending L > ascending. Strength with SLR 4/5 without increased pain. Overall better objectively but pain is still an issue for her and not improving. Goals Goal 1:: 0-125 AROM L knee without pain to smooth out function Goal Progress: Goal Met Goal 2:: Walk and steps without pain Goal Progress: still painful Goal 3:: Sleep without waking at night Goal Progress: intermittently Goal 4:: I approrpiate HEP to limit future problems Goal Progress: Not Progressing Goal 5:: LEFS 62 Goal Progress: Progressing Plan Plan: D/C back to doctor for next step(MRI?) D/C Information Discharge Comments: Pt frustrated with lack of improvement in pain and will contact doctor regarding next medical step. d/c sentence: If there are questions or concerns regarding this patient's physical therapy, please feel free to call me at [phone]. Thank you for the referral of this patient. Sincerely, Paulie Nathan, DPT, OCS, CSCS Balance/Gait/Functional tests Balance/Special Test Scores Functional Gait Assessment Score: 29 % Disability: 3.3400 Lower Extremity Functional Score: 56 Improvement % Improvement: 10
== END 2023-09-04 19:00 | disposition home or self-care (01) ==
LOC: PT 11:30
PROVIDERS: PCP Family Medicine; Referring Provider Family Medicine; Visit Provider Family Medicine
DX: G89.29 Other chronic pain (principal); M25.562 Pain in left knee
CPT/HCPCS: 97110; 97140; 97161; 97530

== ENCOUNTER → 2023-10-15 | Outpatient (CLI) | payer MEDICARE, OTHER, SELFPAY ==
[2023-10-15 13:26] LABS: ALB/GLOB Ratio 0.9 RATIO (0.9-2.4); AST(SGOT) 27 U/L (15-37); Alanine Aminotransfer ALT/SGPT 27 U/L (13-56); Albumin, Serum 3.1 g/dL (3.2-5.0); Alkaline Phosphatase 99 U/L (45-117); Anion Gap 6 (5-15); BUN 12 mg/dL (7-18); BUN/Creat Ratio 13.3 RATIO (10-20); Bilirubin, Direct 0.13 mg/dL (0.00-0.30); Calcium,Total 8.9 mg/dL (8.5-10.1); Chloride 107 mmol/L (98-107); Cholesterol 204 mg/dL (200); EST Glomerular Filtration Rate 66 mL/min (>60); Est Glom Filt Rate - Afr Amer 79 mL/min (>60); Globulin 3.6 g/dL (2.2-4.2); Glucose 96 mg/dL (74-106); High Density Lipoprotein 56 mg/dL; Potassium 4.2 mmol/L (3.5-5.1); Protein, Total 6.7 g/dL (6.4-8.2); Sodium Level 140 mmol/L (136-145); Triglycerides 93 mg/dL; Very Low Density Lipoprotein 19 mg/dL (5-40)
== END | disposition home or self-care (01) ==
PROVIDERS: Nurse Practitioner Gerontology; PCP Family Medicine; Referring Provider Family Medicine; Visit Provider Family Medicine
DX: E78.00 Pure hypercholesterolemia, unspecified (principal); I10 Essential (primary) hypertension; M25.562 Pain in left knee
CPT/HCPCS: 36415; 80053; 80061; 82248

== ENCOUNTER → 2023-10-18 | Outpatient (CLI) | payer MEDICARE, OTHER, SELFPAY ==
--- NOTE | 2023-10-18 15:48 | MRI_ITS ---
STUDY: MR Knee W/O Contrast 10/20/2023 2:55 PM REASON FOR EXAM: Female, 73 years old. meniscus tear, internal derangement of left knee TECHNIQUE: Standardized fat and water weighted pulse sequences were obtained in all 3 orthogonal planes. COMPARISON: None. FINDINGS: Normal medial meniscus. Normal hyaline cartilage of the medial femorotibial compartment. There is mild osteoarthritic spur formation of the medial knee compartment. Normal medial collateral ligamentous complex (MCL). Normal distal semimembranosus, gracilis and semitendinosus tendons. Normal lateral meniscus. Normal hyaline cartilage of the lateral femorotibial compartment. There is mild osteoarthritic spur formation of the lateral knee compartment. Normal proximal tibiofibular articulation. Normal lateral collateral (fibular) ligament. Normal popliteus tendon. Normal biceps femoris tendon. Normal anterior cruciate ligament (ACL). Normal posterior cruciate ligament (PCL). There is arthrosis of the patellofemoral articulation. Normal hyaline cartilage of the patellofemoral compartment. Normal medial and lateral patellar retinaculum. Normal quadriceps tendon. Normal patellar tendon. Normal Hoffa''s fat pad. There is no joint effusion. The soft tissues are unremarkable. The otherwise visualized osseous structures are unremarkable. MRI/Lower Ext Joint Only (Routine) IMPRESSION: Tricompartmental degenerative changes of the knee. Electronically Signed: Sheldon Oswald MD at 14:58 EDT ,
== END | disposition home or self-care (01) ==
PROVIDERS: PCP Family Medicine; Referring Provider Family Medicine; Visit Provider Family Medicine
DX: M23.92 Unspecified internal derangement of left knee (principal)
CPT/HCPCS: 73721

== ENCOUNTER 2024-02-05 14:33 | Emergency (ER) | payer MEDICARE, OTHER, SELFPAY ==
[2024-02-05 14:34] VITALS: BP 138/83; PULSE 90; RESP 18; TEMP 36.1; O2SAT 95; BMI 29.5
--- NOTE | 2024-02-05 15:16 | CT_ITS ---
STUDY: CT BRAIN WITHOUT CONTRAST REASON FOR EXAM: Female, 74 years old. Head injury, + Eliquis RADIATION DOSAGE (If Supplied By Facility): CTDIvol = ( 44.99 ) mGy, DLP = ( 779.24 ) mGycm TECHNIQUE: Transaxial CT imaging of the brain was performed without administration of intravenous contrast material. Individualized dose optimization techniques were used for this CT. COMPARISON: No relevant priors. FINDINGS: Normal soft tissue structures. Normal calvarium. There is mild cerebral atrophy with widening of the extra-axial spaces and ventricular dilatation. Normal white matter tracts of the cerebral hemispheres. There are small punctate calcifications of the basal ganglia which are seen in the aging brain as a normal variant. Normal brainstem. Normal cerebellum. There is no intracranial hemorrhage. There are no findings of an acute ischemic infarction. Normal visualized paranasal sinuses. CT/Brain/Head without Contrast IMPRESSION: Chronic involutional changes of the brain. There are small punctate calcifications in the basal ganglia which are seen in the normal aging brain Electronically Signed: Alex Barboza MD at 15:39 EDT ,
--- NOTE | 2024-02-05 15:24 | EX.ED.GENINJ ---
HPI History of Present Illness Chief Complaint: Head Injury Informant: patient Narrative Narrative: Patient is a 74-year-old female with history of fibrillation (on Eliquis) presenting for evaluation after head injury. Patient states she was vacuuming in her basement. She had bent over and when she put her head up she hit the top of her head on a wooden beam. This occurred around 12:30 PM. She denies any loss of conscious. She denies any bleeding. She denies any change in her vision, numbness or tingling. She came in for head CT since she hit her head and is on Eliquis. No other complaints or concerns at this time. I denies any significant headache but states the top of her head where she hit it is just sore. [facility] Medical History (Updated 02/05/24 @ 15:[address] Consuelo Smith, DO) Essential hypertension Hyperlipidemia Paroxysmal SVT (supraventricular tachycardia) Premature ventricular contraction Home Medications ?Medication ?Instructions ?Recorded ?Last Taken ?Type ezetimibe 10 mg tablet (Zetia) 10 mg PO QDAY cholesterol/ lipids 02/04/18 Unknown History ipratropium bromide 17 2 puff inhalation Q6H breathing 02/05/18 Unknown History mcg/actuation HFA aerosol inhaler (Atrovent HFA) cholecalciferol (vitamin D3) 50 50 mcg PO DAILY vitamin 04/11/20 Unknown History mcg (2,000 unit) capsule loratadine 10 mg tablet 10 mg PO DAILY allergies 04/11/20 Unknown History multivitamin 1 tab PO DAILY 05/02/22 Unknown History apixaban 5 mg tablet (Eliquis) 5 mg PO BID #180 tabs 02/27/23 Unknown Rx metoprolol succinate 25 mg See Rx Instructions .Route 05/15/23 Unknown Rx tablet,extended release 24 hr .COMPLEX #90 tabs lisinopril 5 mg tablet 5 mg PO DAILY #90 TABLETS 12/02/23 Unknown Rx Allergy/AdvReac Type Severity Reaction Status Date / Time pitavastatin (From Livalo) Allergy Severe Itching Verified 02/05/24 14:34 colestipol AdvReac Severe Constipatio Verified 02/05/24 14:34 n diltiazem AdvReac Severe Dropped BP Verified 02/05/24 14:34 to 77/57, almost passed out meloxicam AdvReac Severe Hallucinati Verified 02/05/24 14:34 ons amlodipine AdvReac Intermediate Increased Verified 02/05/24 14:34 pulse Beef Containing Products AdvReac Upset Verified 02/05/24 14:34 Stomach ibuprofen AdvReac Other Verified 02/05/24 14:34 Penicillins (PCN) AdvReac Hives Verified 02/05/24 14:34 Family History Mother CAD (coronary artery disease) Esophageal cancer Father CAD (coronary artery disease) Atrial fibrillation Lung cancer Surgical History H/O: hysterectomy [place] teeth removed History of external ear surgery Social History household members: spouse housing: house Smoking Status: Never smoker alcohol intake: never what type of physical activity do you participate in: walking frequency: 3-4 times per week do you feel safe at home: Yes ROS ROS ED Constitutional Constitutional ED: Denies chills or fever(s) Eyes Eyes: Denies blurry vision or change in vision Cardiovascular Cardiovascular: Denies chest pain Respiratory/Chest Respiratory/Chest: Denies cough or dyspnea Gastrointestinal Gastrointestinal: Denies nausea or vomiting Musculoskeletal Musculoskeletal: Denies neck pain Integumentary Reports Abrasions Neurologic Neurologic: Reports headache(s); Denies paresthesias or weakness Hematologic/Lymphatic Hematologic/Lymphatic: Reports easy bleeding EXAM Physical Exam Const Vital Signs: 02/05/24 14:34 02/05/24 15:56 Temperature 97 F L 97 F L Temperature Source Temporal Pulse Rate 90 87 Respiratory Rate 18 18 Blood Pressure 138/83 H 137/88 H Blood Pressure Mean 101 104 Pulse Ox 95 96 Oxygen Delivery Method Room Air Positive well nourished and well developed General Appearance ED: well developed and NAD HEENT Reports TM's clear HEENT Narrative: No cephalhematoma. No palpable skull fracture. Patient has a very fine linear abrasion approximately 3 cm in length along the right vertex of the scalp Negative for tenderness Tympanic Membrane ED: Yes TM's clear Eyes PERRL Neck full ROM General: Negative for tenderness Chest Wall inspection of chest normal Resp normal respiratory effort and clear to auscultation bilaterally Cardio regular rhythm Extremity normal to inspection and full ROM Neuro oriented x3, CN's II-XII intact bilaterally, moves all extremities and no focal motor deficits Julianna Coma Scale: document GCS findings Spontaneous Obeys Commands Oriented 15 Sensorium / Orientation: alert Skin no rashes or lesions noted and no wounds MDM MDM MDM Narrative Medical decision making narrative: Patient is evaluated for a head injury. She is on Eliquis does increase risk of intracranial hemorrhage. No loss of conscious. Has a very mild and superficial linear abrasion is almost more like an implant ana versus an abrasion. Does not require any laceration repair or wound care. Will obtain head CT to rule intracranial hemorrhage. I do not think she requires any neck imaging as she does not have any distracting injury, no midline tenderness, normal range of motion of the neck and completely normal neurologic exam/acting appropriately. CT of the brain does not show any acute process. Will be discharged home with return instructions. Counseled take Tylenol as needed. Patient agreeable plan of care. Radiography Diagnostic Testing: Clinical Impression(s) from Imaging Studies Brain CT 02/05/24 15:16 IMPRESSION: Chronic involutional changes of the brain. There are small punctate calcifications in the basal ganglia which are seen in the normal aging brain Electronically Signed: Alex Barboza MD at 15:39 EDT , Discharge Plan Triage Chief Complaint: Head Injury ED Provider: Consuelo Smith Dx/Rx/DC Orders Clinical Impression: [facility] (closed head injury), [facility] (current) use of anticoagulants Instructions: ED Head Injury (Adult) Prescriptions: No Action ipratropium bromide [Atrovent HFA] 17 mcg/actuation HFA aerosol inhaler 2 puff INHALATION Q6H cholecalciferol (vitamin D3) 50 mcg (2,000 unit) capsule 50 mcg PO DAILY loratadine 10 mg tablet 10 mg PO DAILY multivitamin Tablet 1 tab PO DAILY ezetimibe [Zetia] 10 mg tablet 10 mg PO QDAY Eliquis 5 mg tablet 5 mg PO BID Qty: 180 3RF metoprolol succinate 25 mg tablet extended release 24 hr See Rx Instructions .ROUTE .COMPLEX Qty: 90 3RF Dose Instruction: TAKE 1 TABLET DAILY Rx Instructions: TAKE 1 TABLET DAILY lisinopril 5 mg tablet 5 mg PO DAILY Qty: 90 3RF Primary Care Provider: Paulie Almendarez Referrals: Paulie Almendarez MD [Primary Care Provider] - Activity Restrictions/Additional Instructions: Your CT of the brain showed chronic change but no signs of acute trauma or bleeding. He may take Tylenol seen for pain. Please continue to take your Eliquis and other medications as prescribed. Return to the ER if you develop further worrisome symptoms such as severe headache, vision changes, numbness, weakness especially on 1 side of the body over the other or nausea and vomiting. Print Language: Danish Disposition Disposition: Home, Self Care Discharge Date/Time: 02/05/24 15:57
[2024-02-05 15:56] VITALS: BP 137/88; PULSE 87; RESP 18; TEMP 36.1; O2SAT 96
== END 2024-02-05 15:57 | disposition home or self-care (01) ==
PROVIDERS: Emergency Provider Emergency Medicine; PCP Family Medicine; Visit Provider Emergency Medicine
DX: S09.90XA Unspecified injury of head, initial encounter (principal); I48.91 Unspecified atrial fibrillation; Z79.01 Long term (current) use of anticoagulants; I10 Essential (primary) hypertension; E78.5 Hyperlipidemia, unspecified; W22.09XA Striking against other stationary object, initial encounter
CPT/HCPCS: 70450; 99282

== ENCOUNTER → 2024-08-04 | Outpatient (CLI) | payer MEDICARE, OTHER, SELFPAY ==
--- NOTE | 2024-08-04 08:21 | CT_ITS ---
PROCEDURE: COMPUTED TOMOGRAPHY OF THE LEFT LOWER EXTREMITY REASON FOR EXAM: PATIENT IS SCHEDULED FOR SURGERY AUGUST 27, 2024. KNEE PAIN. TECHNIQUE: Contiguous axial scans of 2.5 mm slice thicknesses. Sagittal and coronal reconstruction images were obtained. Special attention was given to the left hip, left knee, and left ankle. One or more dose reduction techniques were used (e.g., automated exposure control, adjustment of mA and/or kv according to patient size, use of iterative reconstruction technique). Contrast: Not given. COMPARISON: No relevant prior available for comparison. FINDINGS: LEFT HIP: No acute osseous abnormalities. Mild degenerative spurring involving the greater trochanter. Hip joint is preserved. Surrounding soft tissues unremarkable. LEFT KNEE: No acute osseous abnormalities. Mild narrowing of the medial joint compartment. Mild degenerative cystic changes. Mild anterior patellar spurring. No calcified loose bodies. Surrounding soft tissues unremarkable. LEFT ANKLE: No acute osseous abnormalities. Large dorsal calcaneal spur. Small plantar calcaneal spur. Ossicles at the tip of the medial malleolus. Ankle mortise is preserved. Mild degenerative cystic changes. CT/Extremity Lower without Contra IMPRESSION: 1. Mild degenerative changes involving the left hip, left knee, and left ankle . 2. Prominent dorsal calcaneal spur. 3. Ossicles at the tip of the medial malleolus most likely related to old trau ma. 4. No acute osseous abnormalities. Reading Location: [facility]
[2024-08-04 09:25] LABS: Absolute Lymphocyte Count 2.16 X10^3/uL (0.83-4.51); Absolute Neutrophil Count 4.5 X10^3/uL (2.0-7.7); Basophil# 0.08 X10^3/uL; Eosinophil# 0.65 X10^3/uL; Eosinophils% 8.2 % (0-5); Hematocrit 44.6 % (37-47); Hemoglobin 14.8 g/dL (12.0-15.0); Lymphocyte # 2.16 X10^3/ul (0.83-4.51); Lymphocyte % 27.3 % (19-41); Mean Corp Hgb Conc 33.2 g/dL (32-36); Mean Corpuscular Hgb 29.7 pg (27.0-32.0); Mean Corpuscular Volume 89.4 fL (81-99); Mean Platelet Vol. 10.6 fl (6.2-12.0); Monocyte# 0.55 X10^3/uL; NRBC Flagged by Analyzer 0 % (0-5); Neutrophil # 4.45 X10^3/uL (2.7-7.7); Neutrophil % 56.2 % (47-70); Platelet Count 287 K/mm3 (150-450); RBC Distribution Width CV 13.2 % (11.6-14.6); RBC Distribution Width SD 42.5 fl (35.1-43.9); Red Blood Count 4.99 M/mm3 (4.2-5.4); White Blood Count 7.9 K/mm3 (4.4-11.0)
[2024-08-04 10:28] LABS: Albumin, Serum 3.3 g/dL (3.2-5.0); Anion Gap 4 (5-15); BUN 9 mg/dL (7-18); BUN/Creat Ratio 10.2 RATIO (10-20); Calcium,Total 9.4 mg/dL (8.5-10.1); Chloride 105 mmol/L (98-107); Creatinine, Serum 0.88 mg/dL (0.55-1.02); EST Glomerular Filtration Rate 67 mL/min (>60); Est Glom Filt Rate - Afr Amer 81 mL/min (>60); Glucose 93 mg/dL (74-106); Potassium 4.2 mmol/L (3.5-5.1); Sodium Level 138 mmol/L (136-145)
== END | disposition home or self-care (01) ==
LOC: CT 08:19
PROVIDERS: PCP Family Medicine; Referring Provider Specialist; Visit Provider Physician Assistant Surgical
DX: Z01.818 Encounter for other preprocedural examination (principal); M17.12 Unilateral primary osteoarthritis, left knee; Z01.810 Encounter for preprocedural cardiovascular examination; G89.29 Other chronic pain
CPT/HCPCS: 36415; 73700; 80048; 82040; 85025; 93005

== ENCOUNTER → 2024-09-10 | Outpatient (CLI) | payer MEDICARE, OTHER, SELFPAY ==
--- NOTE | 2024-09-10 15:02 | VDLE_ITS ---
Reason For Study Reason For Study: LLE Swelling RIGHT LEFT CFV is compressible, spontaneous, phasic, competent GSV is normal. and demonstrates normal augmentation. CFV is compressible, spontaneous, phasic, competent, Procedure and demonstrates normal augmentation. This is a venous duplex using B-mode, color flow and FV is compressible, spontaneous, phasic, competent spectral Doppler. and demonstrates normal augmentation. Exam performed in department. POP V is compressible, spontaneous, phasic, competent The exam was diagnostic. and demonstrates normal augmentation. A preliminary report was called and/or faxed to T/P Trunk is compressible. [facility] / Yamini Yip. PTV is compressible. LT PerV is compressible. VL/Venous Duplex US, Unilateral Interpretation Summary Deep veins of the left lower extremity are patent and compressible segmentally. There is no evidence of left lower extremity deep vein thrombosis. Valvular competence appears intact within the p roximal deep venous system on the left . The left great saphenous vein appears patent and compressible segmentally. The right common femoral vein is patent and compressible . Ordering Physician: Yamini Yip Referring Physician: Paulie Almendarez MD Performed By: Ceferino Veliz RVT
== END | disposition home or self-care (01) ==
LOC: CVS 15:00
PROVIDERS: PCP Family Medicine
DX: R22.42 Localized swelling, mass and lump, left lower limb (principal)
CPT/HCPCS: 93971